=== PATIENT | female | born 1945 | race Caucasian/White ===

== ENCOUNTER 2020-05-22 14:57 | Emergency (ER) | payer OTHER, SELFPAY ==
[2020-05-22 14:59] VITALS: BP 190/67; PULSE 68; RESP 15; TEMP 36.4; O2SAT 98; BMI 24.5
--- NOTE | 2020-05-22 15:08 | VDLE_ITS ---
RIGHT GSV is normal. CFV is compressible, spontaneous, phasic, competent and demonstrates normal augmentation. FV is compressible, spontaneous, phasic, competent and demonstrates normal augmentation. POP V is compressible, spontaneous, phasic, competent and demonstrates normal augmentation. T/P Trunk is compressible. PTV is compressible. RT PerV is compressible. Gastroc V is dilated and noncompressible. Varicose veins below the knee are noncompressible. Procedure This is a venous duplex using B-mode, color flow and spectral Doppler. Exam performed portable in ED. The exam was abbreviated due to the COVID 19 protocol. The exam was diagnostic. A preliminary report was called and/or faxed to Dr. Bazan. Interpretation Summary Acute deep venous thrombosis right gastrocnemius veins Superficial thrombophlebitis infrageniculate right varicose veins Patent and compressible right great saphenous vein COVID-19 protocol Ordering Physician: Shy Bazan Referring Physician: TEODORO Pendleton M.D. Performed By: Jett Whaley RVT
--- NOTE | 2020-05-22 15:09 | ED.VIS.GEN ---
History of Present Illness Chief Complaint: Lower Extremity Injury Detail of Chief Complaint: Right leg pain, concern for DVT Informant: Patient Onset: Days - Greater than 1 week Context: Gradual Onset Current Severity: Mild Maximum Severity: Moderate Narrative: Patient presents secondary to right leg pain and concern for DVT. Patient denies injury to that leg. She does report history of surgery for skin cancer on that leg several years ago where they took out one of the main veins. She has had some problems with swelling to that leg since that time. She reports a problem with blood clots in the past, but states she is never been on blood thinners. She did start taking a baby aspirin daily a week or so ago when this started. She denies chest pain or shortness of breath. Past Medical History - Allergies and Home Meds Allergies/Adverse Reactions: Allergies PAIN MEDS Adverse Reaction (Uncoded 05/22/20 14:57) Rash Primary Care Physician: Lacho Pendleton III, MD [Primary Care Provider] - Lives: With Family Smoking Status: Never smoker Review of Systems General: Denies: Chills, Fever Eyes: Denies: Visual changes - bilaterally ENT: Denies: Bilateral ear pain Cardiovascular: Denies: Chest pain Respiratory: Denies: Dyspnea, Cough Gastrointestinal: Denies: Abdominal pain Musculoskeletal: Reports: Swelling, Extremity Pain Skin: Denies: Rash Hematologic: Denies: Easy bruising, Easy bleeding Allergy: Denies: Uticaria Physical Exam Vital Signs/Narrative: Vital Signs Temp Pulse Resp BP Pulse Ox 05/22/20 14:59 97.5 F L 68 15 190/67 H 98 Inital Vital Signs reviewed: Yes General: Well nourished, Well developed Head: Normocephalic ENT: Moist mucous membranes Neck: Supple Cardiovascular: Regular rate, Regular rhythm Respiratory: No distress, CTA bilaterally Abdomen: Soft, Nontender Extremities: - - Tenderness to palpation what feels like superficial clot in the medial right lower leg. Mild surrounding skin erythema that looks to be more consistent with chronic venous skin changes. Strong distal pulses. No tenderness at the knee or hip. Neurological: Alert, Oriented x3 Psychological: Normal affect Diagnostic/Tx/Re-eval Venous ultrasound was performed. Verbal report from the tech indicates several varicose veins that are clotted superficially as well as a deep clot in the gastroc. - Medical Decision Making Test results discussed with the patient. Because she has a single deep clot below the knee we discussed the options of repeat imaging studies versus anticoagulants. At this time she is reluctant to start blood thinners. I did speak with her PCP, Dr. Lacho Pendleton. He will order repeat ultrasound for her. If patient does not hear from the office tomorrow she is to call them to verify time of her next appointment. ED Disposition - Plan for ED Patient: Disposition: Home or Assisted Living Diagnosis: DVT (deep venous thrombosis) Instructions: ED DVT Referrals: Lacho Pendleton III, MD [Primary Care Provider] - 3-5 Days
[2020-05-22 16:04] VITALS: BP 172/87; PULSE 71; RESP 16; O2SAT 97
== END 2020-05-22 16:11 | disposition home or self-care (01) ==
LOC: ED 16:01
PROVIDERS: Emergency Provider Emergency Medicine; PCP Family Medicine
DX: I82.461 Acute embolism and thrombosis of right calf muscular vein (principal); I83.91 Asymptomatic varicose veins of right lower extremity; Z85.828 Personal history of other malignant neoplasm of skin
CPT/HCPCS: 93971; 99282

== ENCOUNTER 2021-09-09 13:58 | Observation (INO) | payer SELFPAY, OTHER ==
[2021-09-09] VITALS (34 sets, daily range): BP systolic 83–190; BP diastolic 53–127; PULSE 54–90; RESP 12–20; TEMP 35.9–36.7; O2SAT 92–100; BMI 24.4
[2021-09-09 06:50] LABS: Hematocrit 40.7 % (37-47); Hemoglobin 14.2 g/dL (12.0-15.0); Mean Corp Hgb Conc 34.9 g/dL (32-36); Mean Corpuscular Hgb 32.9 pg (27.0-32.0); Mean Corpuscular Volume 94.2 fL (81-99); Mean Platelet Vol. 10.1 fl (6.2-12.0); Platelet Count 260 K/mm3 (150-450); RBC Distribution Width CV 12.6 % (11.6-14.6); RBC Distribution Width SD 43.8 fl (35.1-43.9); Red Blood Count 4.32 M/mm3 (4.2-5.4); White Blood Count 5.4 K/mm3 (4.4-11.0)
[2021-09-09] MEDS: Lactated Ringers 1,000 ML 15 ML IV ×2 (06:52→09:39)
[2021-09-09 07:06] LABS: Anion Gap 6 (5-15); BUN 20 mg/dL (7-18); BUN/Creat Ratio 18.5 RATIO (10-20); Calcium,Total 9.3 mg/dL (8.5-10.1); Chloride 107 mmol/L (98-107); Creatinine, Serum 1.08 mg/dL (0.55-1.02); EST Glomerular Filtration Rate 53 mL/min (>60); Est Glom Filt Rate - Afr Amer 64 mL/min (>60); Estimated Creatinine Clearance 47.76 ml/min; Glucose 112 mg/dL (74-106); Potassium 3.8 mmol/L (3.5-5.1); Sodium Level 139 mmol/L (136-145)
--- NOTE | 2021-09-09 07:32 | EKG12_ITS ---
Test Reason : PRE OP Blood Pressure : / mmHG Vent. Rate : 065 BPM Atrial Rate : 065 BPM P-R Int : 204 ms QRS Dur : 084 ms QT Int : 420 ms P-R-T Axes : 072 037 045 degrees QTc Int : 436 ms Sinus rhythm with Premature atrial complexes Low voltage QRS Borderline ECG When compared with ECG of 03-OCT-2013 12:33, Premature atrial complexes are now Present Confirmed by MARIELENA WINTER, TOBIAS ([id number]), visual effects editor ANTOINE STOVALL ([id number]) on 09/12/2021 1:38:42 PM Referred By: Myrna Ventura Confirmed By:ARON PEGUERO MD
--- NOTE | 2021-09-09 07:33 | OP.PCM_ITS ---
Problems Associated Problem List Diagnoses (1) Female bladder prolapse, acquired: (2) Vaginal enterocele: Report of Operation Date of Procedure: 09/09/21 Pre-Operative Diagnosis: vaginal enterocele Post-Operative Diagnosis: Same Surgery/Procedure Performed:: Repair enterocele, bilateral sacrospinous ligament fixation with dermis, cystoscopy with bilateral ureteral catheterization. Surgeon: Myrna Ventura Type of Anesthesia: General Specimen's removed: None Drains: Bailey catheter Estimated Blood Loss (mL): 25 cc Description of Procedure: The patient is a 75-year-old female with a significant enterocele, secondary to her discomfort difficult to tell the amount of anterior and posterior defect in the office. She presents for definitive surgical intervention. We have discussed a colpocleisis if possible, and if not the safest surgical intervention. Informed consent was obtained. The patient was taken the operating room and placed on the operating room table. Anesthesia monitored the head, neck, airway, IV access and vital signs throughout the case. Once anesthesia was appropriately administered the patient was placed into dorsal lithotomy and Trendelenburg position was prepped and draped in usual sterile fashion. A Bailey catheter was inserted and the bladder was drained. The catheter was left to straight drain. At this time the enterocele sac was easily identified and brought further out into the operative space. The posterior defect was all apical and there is no anterior defect. At this time the decision was made to just repair the enterocele and provide apical support. The enterocele sac was injected submucosally with lidocaine with epinephrine for hydrostatic dissection and hemostatic control. A knife was used to open the vaginal mucosa and sharp and blunt dissection was performed until the enterocele sac was reduced. It was reduced using 3-0 PDS and subsequent pursestring sutures all the way to the apex. At this time the ischial spines were freed from surrounding tissues and the sacrospinous ligaments were identified and dissected. The Capio device was used to pass Ethibond sutures on each side. The sutures were passed through the dermis which was trimmed to fit the space. From here, the Ethibond was taken through the vaginal mucosa at the apex. The patient's left side was brought through the anterior portion of the incision, and on the right posterior to the incision. At this time the excess mucosa from the enterocele sac was excised. The dermis was attached to the apex anteriorly and posteriorly. The incision was then closed in full-thickness fashion with running interlocking 2-0 Vicryl. The Ethibond sutures were tied into position. The enterocele was completely reduced and no prolapse remained. At this time the Bailey catheter was removed and the patient was placed in a flat supine pos ition. A cystoscopy was performed through the urethra under direct visualization revealing no evidence of injury to the urinary bladder. The ureteral orifices were located in the correct anatomic position. A right ureteral jet was easily observed. A whistle-tip catheter was inserted into each ureteral orifice to 20 cm without evidence of obstruction or injury. At this time the cystoscope was removed and the Bailey catheter was replaced. The vagina was packed with estrogen cream and vaginal packing. The patient was awakened and taken to the recovery room in good condition. There were no complications during this procedure. Grafts/Implants Used: Dermis Complications None Admit VTE Documentation VTE Present on Admission: Yes VTE Mechan Device Prophylaxis: SCD's VTE Pharm Prophylaxis ordered?: Yes
[2021-09-09] MEDS: Cefazolin 2 GM in 0.9% Normal Saline 100 ML IV (07:41)
[2021-09-09] MEDS: Lubricating Jelly 60 GM Tube 30 GM (07:49)
[2021-09-09] MEDS: Lidocaine 1%/Epi 1:200 (30ml) 30 ML AMPUL (08:00)
[2021-09-09] MEDS: Estrogens,Conj. 1 Tube 1 DOSE (09:15)
[2021-09-09] MEDS: Enoxaparin 40 MG/0.4 ML Syringe SC (12:03)
[2021-09-09] MEDS: Dextrose 5%-Lactated Ringers 1,000 ML 100 ML IV (12:04)
[2021-09-09] MEDS: 0.9% Normal Saline 1,000 ML 500 ML IV ×2 (15:40→18:16)
--- NOTE | 2021-09-09 15:50 | CT_ITS ---
EXAM: CT ABDOMEN AND PELVIS WITH INTRAVENOUS CONTRAST : 1945 CLINICAL INDICATION: Abdominal distention following surgery TECHNIQUE: Helically acquired images were obtained of the abdomen and pelvis with intravenous contrast. This CT exam was performed using one or more of the following dose reduction techniques: automated exposure control, adjustment of the mA and/or kV according to patient size, and/or use of iterative reconstruction technique. This report was created using Virtual[employer] report generation technology. CONTRAST: IV 100mL Isovue-300 COMPARISON: None. FINDINGS: LOWER THORAX: Unremarkable. Lung bases are clear. No cardiomegaly. No significant pericardial effusion. ABDOMEN: LIVER: Unremarkable. Homogeneous. No focal mass. GALLBLADDER AND BILE DUCTS: Unremarkable. No calcified gallstones. No gallbladder distention or wall edema. No intra- or extrahepatic biliary ductal dilation. PANCREAS: Unremarkable. No focal cystic or solid mass. SPLEEN: Unremarkable. Normal size without focal cystic or solid mass. ADRENALS: Unremarkable. No nodules. KIDNEYS AND URETERS: Unremarkable. Normal renal size and position. No hydronephrosis. STOMACH AND BOWEL: 15.8 x 8.8 x 8.6 cm hematoma noted within the pelvis located posterior to the rectum within the presacral space. Early arterial phase image shows a small focus of contrast extravasation measuring 15 mm in diameter. Subsequent venous phase image demonstrates extravasated contrast to measure 7 cm in maximum diameter indicating significant arterial bleeding. More interstitial hemorrhage extends into the retroperitoneal space lower abdomen. No stomach or bowel distention. No focal inflammatory change. PELVIS: APPENDIX: No evidence of acute appendicitis. BLADDER: Bailey catheter in place within a decompressed anteriorly displaced urinary bladder. Surgical dressing noted along the perineum posterior to the urethra. REPRODUCTIVE: Unremarkable as visualized. No mass. ABDOMEN and PELVIS: INTRAPERITONEAL SPACE: Small amount of ascites noted within the right upper quadrant with density suggestive of transudate. No free air. BONES/JOINTS: Unremarkable. No suspicious lytic or blastic abnormality. SOFT TISSUES: Unremarkable. No discrete abdominal or pelvic wall hernia. VASCULATURE: See above. LYMPH NODES: Unremarkable. No enlarged lymph nodes. CT/Abdomen/Pelvis W IV Cont ONLY IMPRESSION: Large presacral pelvic hematoma displacing the rectum anteriorly with evidence of significant active bleeding. These findings were discussed with at 5 PM September 09, 2021. Individualized dose optimization techniques were used for this CT. at 1702 Reported and signed by: Benny Freire MD Electronically Signed: Benny Freire MD at 17:01 EDT ,
--- NOTE | 2021-09-09 15:58 | PCM.PN.GU ---
Subjective Subjective Called to see patient due to decrease in blood pressure and abdominal bloating with decreased urine output. She was feeling well until she tried to drink some water about 15 minutes ago. Now she is having bloating and feeling like her bladder is full and will not empty. No nausea.Did feel light headed when stood at bedside. When vitals were checked, blood pressure dropped to 83 systolic. She is currently lying in bed. Main complaint is that she feels like her bladder cannot empty. Objective Data Objective Data Vital Signs: Vital Signs Temp Pulse Resp BP Pulse Ox 97.7 F L 64 18 110/68 95 09/09/21 15:23 09/09/21 15:57 09/09/21 15:23 09/09/21 15:57 09/09/21 15:23 Oxygen Flow Rate (L/min) 2 Oxygen Delivery Method Room Air Weight: 75 kg Body Mass Index (BMI) 24.4 Intake & Output: Intake and Output for Last 24 Hours 09/07/21 09/08/21 09/09/21 22:59 23:59 23:59 Intake Total 1146.25 / 1146.25 Output Total 560 / 560 Balance 586.25 / 586.25 Lab / Micro Data Result Diagrams: 09/09/21 06:42 09/09/21 06:42 Labs: Laboratory Results - last 24 hr 09/09/21 06:42: WBC 5.4, RBC 4.32, Hgb 14.2, Hct 40.7, MCV 94.2, MCH 32.9 H, MCHC 34.9, RDW Std Deviation 43.8, RDW Coeff of Nuvia 12.6, Plt Count 260, MPV 10.1 09/09/21 06:42: Sodium 139, Potassium 3.8, Chloride 107, Carbon Dioxide 26.0, Anion Gap 6, BUN 20 H, Creatinine 1.08 H, Estim Creat Clear Calc 47.76, Est GFR (MDRD) Af Amer 64, Est GFR (MDRD) Non-Af 53 L, BUN/Creatinine Ratio 18.5, Glucose 112 H, Calcium 9.3 Micro: Microbiology 09/09/21 06:28 Interface Orders SARS-CoV-2 Antigen (Rapid) - Final Physical Exam Const alert, oriented x3 and no apparent distress Constitutional Narrative: appears pale General Appearance: cooperative Cardio regular rate GI soft to palpation Inspection: abdominal distention Palpation: tender Narrative: escobar irrigated and did not drain well. It was removed and replaced with new catheter that drained about 40cc of pale yellow to clear, likely irrigant. Assessment & Plan Assessment/Plan (1) Vaginal enterocele: PLAN: bolus CBC and BMP stat stat CT abdomen and pelvis NPO
--- NOTE | 2021-09-09 16:34 | NURSING ---
pt back from ct via bed at this time. abd remnains distended. pt c/o abd pain. denies wanting ms for pain.
--- NOTE | 2021-09-09 16:35 | NURSING ---
1510 this rn into rm. pt c/o bladder distension. bladder scanned for 61 cc and again for 35 cc. pt painful, abd distended, 1515 jesus rn into rm
--- NOTE | 2021-09-09 16:37 | NURSING ---
1515 attempted to sit pt on side of bed to reposition to get escobar to drain. pt felt like was going to pass out. layed back down in bed. escobar emptied for 150cc. dr lees paged. small amt of bloody drng noted from vagina from surgery. [address] lees at bedside. flushed escobar with no results. changed escobar. no results. 1550 ct abd ordered by dr Hemphill pt to ct via bed. abd remains distended. pt a&ox3.
--- NOTE | 2021-09-09 16:42 | NURSING ---
dr lees paged
[2021-09-09 17:28] LABS: Hematocrit 30.2 % (37-47); Hemoglobin 10.3 g/dL (12.0-15.0); Mean Corp Hgb Conc 34.1 g/dL (32-36); Mean Corpuscular Hgb 32.9 pg (27.0-32.0); Mean Corpuscular Volume 96.5 fL (81-99); Mean Platelet Vol. 10.4 fl (6.2-12.0); Platelet Count 238 K/mm3 (150-450); RBC Distribution Width SD 45.7 fl (35.1-43.9); Red Blood Count 3.13 M/mm3 (4.2-5.4); White Blood Count 14.6 K/mm3 (4.4-11.0)
--- NOTE | 2021-09-09 17:30 | NURSING ---
1700dr nabeel fowler to transfer to icu. report called to [facility]. 1705 lab on ms3 to draw type ans screen. bp 108/63, hr 63, po 100% on 3l. 1710 pt to icu 4. to icu waiting room. aware pt will be trransferred out of icu to [facility]. pt weak, pale, a&ox3.
[2021-09-09 17:41] LABS: Anion Gap 8 (5-15); BUN 20 mg/dL (7-18); BUN/Creat Ratio 18.7 RATIO (10-20); Chloride 108 mmol/L (98-107); Creatinine, Serum 1.07 mg/dL (0.55-1.02); EST Glomerular Filtration Rate 53 mL/min (>60); Est Glom Filt Rate - Afr Amer 64 mL/min (>60); Estimated Creatinine Clearance 48.21 ml/min; Glucose 176 mg/dL (74-106); Potassium 4.2 mmol/L (3.5-5.1); Sodium Level 139 mmol/L (136-145)
--- NOTE | 2021-09-09 18:02 | PCM.PN.GU ---
Subjective Subjective Patient is comfortable, complaining about bladder pressure and abdominal bloating. She is nervous. No nausea. Complaining of dry mouth. Objective Data Objective Data Vital Signs: Vital Signs Temp Pulse Resp BP Pulse Ox 97.1 F L 66 18 110/71 100 09/09/21 16:52 09/09/21 16:52 09/09/21 16:52 09/09/21 16:52 09/09/21 16:52 Oxygen Flow Rate (L/min) 3 Oxygen Delivery Method Nasal Cannula Weight: 75 kg Body Mass Index (BMI) 24.4 Intake & Output: Intake and Output for Last 24 Hours 09/07/21 09/08/21 09/09/21 22:59 23:59 23:59 Intake Total 1612.92 / 1612.92 Output Total 560 / 560 Balance 1052.92 / 1052.92 Lab / Micro Data Result Diagrams: 09/09/21 17:14 09/09/21 17:14 Labs: Laboratory Results - last 24 hr 09/09/21 06:42: WBC 5.4, RBC 4.32, Hgb 14.2, Hct 40.7, MCV 94.2, MCH 32.9 H, MCHC 34.9, RDW Std Deviation 43.8, RDW Coeff of Nuvia 12.6, Plt Count 260, MPV 10.1 09/09/21 06:42: Sodium 139, Potassium 3.8, Chloride 107, Carbon Dioxide 26.0, Anion Gap 6, BUN 20 H, Creatinine 1.08 H, Estim Creat Clear Calc 47.76, Est GFR (MDRD) Af Amer 64, Est GFR (MDRD) Non-Af 53 L, BUN/Creatinine Ratio 18.5, Glucose 112 H, Calcium 9.3 09/09/21 17:14: WBC 14.6 H, RBC 3.13 L, Hgb 10.3 L, Hct 30.2 L, MCV 96.5, MCH 32.9 H, MCHC 34.1, RDW Std Deviation 45.7 H, RDW Coeff of Nuvia 13.0, Plt Count 238, MPV 10.4 09/09/21 17:14: Sodium 139, Potassium 4.2, Chloride 108 H, Carbon Dioxide 23.0, Anion Gap 8, BUN 20 H, Creatinine 1.07 H, Estim Creat Clear Calc 48.21, Est GFR (MDRD) Af Amer 64, Est GFR (MDRD) Non-Af 53 L, BUN/Creatinine Ratio 18.7, Glucose 176 H, Calcium 8.0 L 09/09/21 17:14: Crossmatch See Detail Micro: Microbiology 09/09/21 06:28 Interface Orders SARS-CoV-2 Antigen (Rapid) - Final Radiography Diagnostic Testing: Radiology Impression Abdomen/Pelvis CT 09/09/21 15:50 IMPRESSION: Large presacral pelvic hematoma displacing the rectum anteriorly with evidence of significant active bleeding. These findings were discussed with at 5 PM September 09, 2021. Individualized dose optimization techniques were used for this CT. at 1702 Reported and signed by: Benny Freire MD Electronically Signed: Benny Freire MD at 17:01 EDT , Physical Exam Narrative She is alert and oriented x3. She is appropriate. Resp normal respiratory effort, normal air movement, no retractions and no use of accessory muscles Cardio regular rate and regular rhythm GI GI Narrative: Abdomen remains soft and distended. It is slightly increased in distention from when I saw her approximately 2-1/2 hours ago. Narrative: Bailey catheter draining clear yellow urine. Extremity Extremity Narrative: Moves all extremities. SCDs in place. Skin no petechiae and no mottling General Skin Exam: no breakdown Neuro oriented x3, CN's II-XII intact bilaterally and moves all extremities Assessment & Plan Assessment/Plan (1) Pelvic hematoma in female: (2) Vaginal enterocele: PLAN: Patient will be transferred to [facility]. She will be accepted by Dr. Solo Sanchez. I have spoken with interventional radiology and am awaiting a call from the it quality analyst at [facility]. The plan will be for CTA upon arrival with further evaluation and procedural intervention per radiology. She is currently in the ICU and we will check serial H&H's and continue supportive care. A second intravenous access was obtained. 4 units is typed and screened and on hold. I have spoken with family few times throughout the afternoon and they are aware of the situation. I have answered their questions to the best of my ability.
--- NOTE | 2021-09-09 18:15 | NURSING ---
call received from [facility] transport line. States transfer is on hold until [facility]'s student activities director speaks with Dr. Ventura. Transfer line will call with updated bed number once patient has been accepted by student activities director
[2021-09-09 18:40] LABS: International Normalized Ratio 1.1
[2021-09-09 18:41] LABS: Partial Thromboplast Time 24.7 Seconds (24.1-36.2)
[2021-09-09 19:17] LABS: Hematocrit 29.3 % (37-47); Hemoglobin 9.5 g/dL (12.0-15.0)
[2021-09-09] MEDS: 0.9% Saline Lock 10 ML Syringe IV (19:19)
[2021-09-09] MEDS: Ondansetron 4 MG/2 ML Vial IV (19:19)
--- NOTE | 2021-09-09 19:58 | CPS ---
left O2 on pt due to RN request
== END 2021-09-09 20:30 | disposition short-term general hospital (02) ==
LOC: MS3 14:37 → ICU 20:49
PROVIDERS: Admitting Provider Urology; PCP Internal Medicine; Referring Provider Urology; Visit Provider Urology
PROC: (CPT 57260; principal; 2021-09-09 07:15)
DX: N32.89 Other specified disorders of bladder (principal); D68.9 Coagulation defect, unspecified; R14.0 Abdominal distension (gaseous); H40.9 Unspecified glaucoma; R35.1 Nocturia; N32.81 Overactive bladder; N95.2 Postmenopausal atrophic vaginitis; Z86.718 Personal history of other venous thrombosis and embolism
CPT/HCPCS: 57268; 00942; 36415; 74177; 80048; 85014; 85018; 85027; 85610; 85730; 86850; 86900; 86901; 86920; 86922; 87426; 93005; 94762; 96361; 96365; 96372; 96375; 99218; 99251; J7030; J7120; Q9967; A4216; C1758; G0378; G0463; J2405

== ENCOUNTER 2021-09-16 10:01 | Outpatient (CLI) | payer OTHER, SELFPAY ==
[2021-09-16 10:53] LABS: Hematocrit 26.4 % (37-47); Hemoglobin 8.6 g/dL (12.0-15.0); Mean Corp Hgb Conc 32.6 g/dL (32-36); Mean Corpuscular Volume 98.1 fL (81-99); Mean Platelet Vol. 10.4 fl (6.2-12.0); Platelet Count 291 K/mm3 (150-450); RBC Distribution Width CV 16.2 % (11.6-14.6); RBC Distribution Width SD 51.8 fl (35.1-43.9); Red Blood Count 2.69 M/mm3 (4.2-5.4); White Blood Count 9.8 K/mm3 (4.4-11.0)
[2021-09-16 11:08] LABS: Anion Gap 6 (5-15); BUN 17 mg/dL (7-18); BUN/Creat Ratio 20.7 RATIO (10-20); Calcium,Total 9.1 mg/dL (8.5-10.1); Chloride 105 mmol/L (98-107); Creatinine, Serum 0.82 mg/dL (0.55-1.02); EST Glomerular Filtration Rate 72 mL/min (>60); Est Glom Filt Rate - Afr Amer 87 mL/min (>60); Glucose 103 mg/dL (74-106); Sodium Level 137 mmol/L (136-145)
== END 2021-09-16 23:59 | disposition home or self-care (01) ==
PROVIDERS: PCP Internal Medicine; Referring Provider Urology; Visit Provider Urology
DX: D50.0 Iron deficiency anemia secondary to blood loss (chronic) (principal)
CPT/HCPCS: 36415; 80048; 85027

== ENCOUNTER 2021-09-28 08:34 | Inpatient (IN) | payer OTHER, SELFPAY ==
[2021-09-28] VITALS (9 sets, daily range): BP systolic 116–138; BP diastolic 53–84; PULSE 62–83; RESP 16–20; TEMP 36.4–39.3; O2SAT 90–98; BMI 24.3; BMI 25.5
--- NOTE | 2021-09-28 08:47 | CT_ITS ---
STUDY: CT ABDOMEN AND PELVIS WITH CONTRAST REASON FOR EXAM: Female, 76 years old. Abdominal pain -- IV PO Contrast -- status post hernia surgery 09/09/21 with post op hematoma, trouble urinating, fever, lower abdomen and back pain, DELAYED images included. RADIATION DOSAGE (If Supplied By Facility): CTDIvol = ( 14.91 ) mGy, DLP = ( 1868.78 ) mGycm TECHNIQUE: Transaxial images were obtained from the dome of the diaphragm to the symphysis pubis with oral contrast. Oral and amp; IV Gastrografin and amp; 75mL Isovue-300 was administered. Sagittal and coronal images were reconstructed. Individualized dose optimization techniques were used for this CT. COMPARISON: 09/09/2021 FINDINGS: The visualized lung bases demonstrate atelectatic changes in both lower lobes. Normal heart size. Calcifications in the region of the mitral annulus. Pancreas glands Normal gallbladder and extrahepatic biliary system. Normal spleen. Normal pancreas. Normal bilateral adrenal glands. Moderate right hydronephrosis and hydroureter. Normal left kidney. Significant motion artifacts limiting the evaluation of the bowel loops. The stomach is not well-distended. Normal small intestine. Fecal retention. Oral contrast reached the colon. There is non-visualization of the appendix. There is diffuse atherosclerotic calcification of the abdominal aorta with elongation and tortuosity, but without a demonstrated aneurysm. Normal inferior vena cava. No evidence of retroperitoneal adenopathy. Persistent large heterogeneous pelvic mass in the presacral space consistent with hematoma measuring about 15 cm in maximum diameter displacing the rectum and compressing the urinary bladder consistent with large hematoma. The previously noted active bleed is not definitely identified at this time. Bailey catheter is seen however the balloon may be in bladder base or within the urethra. There is absence of the uterus consistent with a prior hysterectomy. There is a right-sided inguinal hernia containing adipose tissue. Stable osseous structures. CT/Abdomen/Pelvis WITH Contrast IMPRESSION: 1. Persistent large presacral pelvic hematoma displacing the rectum and the bladder unchanged in size since previous examination. The previously noted active bleed is not seen at this time. 2. Mild to moderate right hydronephrosis and hydroureter extending to the pelvic lesion possibly due to compression views are markedly pelvic mass. 3. Bailey catheter with the balloon may be within the urethra. 4. No new focal acute inflammatory process. Electronically Signed: Rick Rivas MD at 11:56 EDT ,
--- NOTE | 2021-09-28 08:48 | ED.VIS.GI ---
HPI HPI - GI History of Present Illness Chief Complaint: Abd Pain Detail of Chief Complaint: Fever, abdomen pain, back pain Informant: patient Abdominal Pain/Flank Pain Current Severity: Moderate Narrative Narrative: Patient presents to the emergency department complaint of abdominal pain and low back pain that started yesterday. Patient states that she had enterocele surgery with urologist on September 09. Patient secondarily developed a hematoma that required 1 unit transfusion. Patient had Bailey catheter placed at time of surgery and then had the catheter taken out 5 days ago however she was unable to void and yesterday had a another catheter placed. Patient also was started on Levaquin for suspected urinary tract infection. Last night patient apparently had fever to 105. Patient denies nausea or vomiting. She did note small amount of blood in the urine. Patient not on any blood thinners. Patient's urologist called me and asked that we obtain lab work and a CT scan to evaluate further. [facility] Medical History (Updated 09/28/21 @ 12:[address] Maile Bowles, DO) Back pain Cancer Cataracts, bilateral DVT (deep venous thrombosis) Easy bruising Glaucoma History of blood clots History of colitis History of edema History of irregular heartbeat History of pneumonia History of stress test Leg cramps Melanoma Mitral valve problem Pelvic hematoma in female Post-menopausal Shortness of breath on exertion Skin cancer Vaginal enterocele Wears glasses Home Medications garlic 1 mg PO DAILY 09/30/13 [History Last Taken Unknown] multivitamin with folic acid [Thera] 1 tab PO DAILY 09/30/13 [History Last Taken Unknown] omega-3 fatty acids-fish oil 1 ea PO DAILY 09/30/13 [History Last Taken Unknown] digestive enzymes 1 cap PO DAILY 05/06/21 [History Last Taken Unknown] hawthorn 500 mg PO DAILY 09/03/21 [History Last Taken Unknown] Allergy/AdvReac Type Severity Reaction Status Date / Time azithromycin Allergy Unknown unknown Verified 09/28/21 08:35 NSAIDS (Non-Steroidal Allergy Unknown rash Verified 09/28/21 08:35 Anti-Inflamma PAIN MEDS AdvReac Rash Uncoded 09/28/21 08:35 Family History (Updated 05/03/21 @ 16:42 by Valeria Saldana) Other Melanoma Surgical History (Updated 09/03/21 @ 11:35 by Janelle Atkinson) History of appendectomy History of hernia repair History of hysterectomy History of knee surgery History of tonsillectomy History of tubal ligation Hx of melanoma excision Social History (Updated 05/03/21 @ 16:42 by Valeria Saldana) Smoking Status: Never smoker alcohol intake: never substance use type: does not use ROS ROS ED Constitutional Constitutional ED: Reports systems reviewed and no addt'l complaints, except as documented and fever(s); Denies body ache(s), change in weight or chills Eyes Eyes: Denies acute decrease in peripheral vision, change in vision, double vision or loss of vision ENT ENT ED: Reports none; Denies ear pain, lip swelling, loss taste/smell, neck pain, otalgia or sore throat Cardiovascular Cardiovascular: Reports none; Denies abdominal pain, chest pain with activity, leg edema, lightheadedness, palpitations, rapid heart rate or syncope Respiratory/Chest Respiratory/Chest: Reports none; Denies change in mental status, dry cough, dyspnea, hemoptysis, shortness of breath at rest or shortness of breath with exertion Gastrointestinal Gastrointestinal: Reports none and abdominal pain; Denies change in stool character, diarrhea, hematemesis, hematochezia, melena, rectal bleeding or vomiting Genitourinary Genitourinary ED: Reports none; Denies abdominal discomfort, anuria, dysuria, genital pain or polyuria Musculoskeletal Musculoskeletal: Reports none and back pain; Denies arthralgias, difficulty walking, extremity pain, muscle weakness or myalgias Integumentary Reports none; Denies abscess or rash Neurologic Neurologic: Reports none; Denies abnormal gait, confusion, focal weakness, frequent falls, headache(s), loss of vision, numbness, paresthesias, radicular pain, vertigo or weakness Psychiatric Psychiatric: Reports systems reviewed and no addt'l complaints, except as documented and none; Denies behavioral changes, confusion, difficulty concentrating, hallucinations, suicidal ideation, tactile hallucinations or visual hallucinations Endocrine Endocrinology: Denies none, cold intolerance, excessive sweating, fatigue or heat intolerance Hematologic/Lymphatic Hematologic/Lymphatic: Reports none; Denies anemia, easy bleeding or easy bruising Allergic/Immunologic Allergic/Immunologic ED: Denies as per HPI, none, lip swelling, mouth swelling, throat swelling, tongue swelling or hives EXAM Physical Exam Const Vital Signs: 09/28/21 08:36 09/28/21 09:01 09/28/21 10:59 Temperature 98.6 F 98.6 F 97.6 F L Temperature Source Oral Oral Oral Pulse Rate 80 80 82 Respiratory Rate 16 16 16 Blood Pressure 123/53 H 123/53 H 129/84 H Blood Pressure Mean 76 76 99 Pulse Ox 92 92 98 Oxygen Delivery Method Room Air Room Air Room Air 09/28/21 12:20 Temperature 97.5 F L Temperature Source Oral Pulse Rate 62 Respiratory Rate 17 Blood Pressure 129/74 H Blood Pressure Mean 92 Pulse Ox 96 Oxygen Delivery Method Room Air Positive well nourished and well developed General Appearance ED: well developed and NAD HEENT Reports TM's clear and moist mucous membranes normocephalic and atraumatic; Negative for trauma or tenderness Tympanic Membrane ED: Yes TM's clear Eyes PERRL and EOMs intact bilaterally General Eye ED: Negative for pale conjunctiva or scleral icterus Neck no lymphadenopathy, supple and no JVD General: Negative for tenderness Chest Wall inspection of chest normal and palpation of chest normal Chest: Negative for tenderness Resp normal respiratory effort and clear to auscultation bilaterally Effort and Inspection: Negative for respiratory distress or pain with movement Auscultation: Negative for rhonchi, wheezes or diminished lung sounds Cardio regular rate, regular rhythm, S1 normal heart sound, S2 normal heart sound and no murmurs Peripheral Pulses: pulses 2+ throughout GI normal to inspection, nondistended, normoactive bowel sounds, soft to palpation, non-tender, non-distended and no masses GI Narrative: Mild diffuse tenderness over lower abdomen. There is no rebound, rigidity, or peritoneal signs. No masses palpated. Back/Spine no CVA tenderness and no thoracic nor lumbar tenderness Extremity normal to inspection General Extremety ED: Negative for edema General Extremity: Negative for edema Neuro oriented x3, CN's II-XII intact bilaterally, no sensory deficits noted and gait normal Sensorium / Orientation: awake, alert, oriented to person, oriented to place and oriented to time Motor Exam: strength 5/5 throughout and strength abnormal Psych mental status grossly normal Skin no rashes or lesions noted and no wounds MDM MDM MDM Narrative Medical decision making narrative: IV line established on arrival. Patient was treated with vancomycin and Zosyn on arrival. Blood cultures ordered. Patient was given normal saline fluid. Patient does have a leukocytosis. Her lactate also was elevated 2.5. CT scan of the abdomen pelvis with IV and p.o. contrast ordered showed persistent large presacral pelvic hematoma displacing the rectum and bladder unchanged in size from previous exam. The previously noted active bleeding is not seen at this time. Patient also had mild to moderate right hydronephrosis and hydroureter extending to the pelvic lesion possibly due to compression. Bailey catheter with balloon may be within the urethra. I asked the nurses to a takedown the Bailey balloon and inserted further into bladder and then reinflate the balloon. I discussed patient with her urologist Dr. Ventura who did not feel there was anything surgical or that patient required any type of immediate intervention. She recommended admission for IV antibiotics and fluids to hospitalist and she can consult on the patient tomorrow when she is back in town. I discussed case with hospitalist will evaluate patient for admission Lab Data Attestation: I reviewed the patient's lab results. Labs: Laboratory Results - last 24 hr 09/28/21 09/28/21 09/28/21 08:51 08:51 08:51 WBC 20.1 H RBC 3.20 L Hgb 10.2 L Hct 30.5 L MCV 95.3 MCH 31.9 MCHC 33.4 RDW Std Deviation 54.1 H RDW Coeff of Nuvia 15.5 H Plt Count 339 MPV 9.7 Immature Gran % (Auto) 0.900 Neut % (Auto) 87.8 H Lymph % (Auto) 5.5 L [place] % (Auto) 5.7 Eos % (Auto) 0.0 Baso % (Auto) 0.1 Absolute Neuts (auto) 17.6 H Absolute Lymphs (auto) 1.10 Nucleated RBC % 0 Sodium 127 L Potassium 3.8 Chloride 91 L Carbon Dioxide 28.0 Anion Gap 8 BUN 15 Creatinine 1.33 H Estim Creat Clear Calc 38.19 Est GFR (MDRD) Af Amer 50 L Est GFR (MDRD) Non-Af 41 L BUN/Creatinine Ratio 11.3 Glucose 125 H Lactic Acid 2.5 H* Calcium 8.5 Total Bilirubin 1.70 H AST 27 ALT 20 Alkaline Phosphatase 104 Total Protein 7.1 Albumin 3.2 Globulin 3.9 Albumin/Globulin Ratio 0.8 L Urine Color Urine Clarity Urine pH Ur Specific [place] Urine Protein Urine Glucose (UA) Urine Ketones Urine Occult Blood Urine Nitrite Urine Bilirubin Urine Urobilinogen Ur Leukocyte Esterase Urine RBC Urine WBC Ur Squamous Epith Cells Urine Bacteria Urine Mucus 09/28/21 10:23 WBC RBC Hgb Hct MCV MCH MCHC RDW Std Deviation RDW Coeff of Nuvia Plt Count MPV Immature Gran % (Auto) Neut % (Auto) Lymph % (Auto) [place] % (Auto) Eos % (Auto) Baso % (Auto) Absolute Neuts (auto) Absolute Lymphs (auto) Nucleated RBC % Sodium Potassium Chloride Carbon Dioxide Anion Gap BUN Creatinine Estim Creat Clear Calc Est GFR (MDRD) Af Amer Est GFR (MDRD) Non-Af BUN/Creatinine Ratio Glucose Lactic Acid Calcium Total Bilirubin AST ALT Alkaline Phosphatase Total Protein Albumin Globulin Albumin/Globulin Ratio Urine Color Yellow Urine Clarity Clear Urine pH 7.0 Ur Specific [place] 1.010 Urine Protein 100 H Urine Glucose (UA) Normal Urine Ketones Negative Urine Occult Blood 150 H Urine Nitrite Negative Urine Bilirubin Negative Urine Urobilinogen Normal Ur Leukocyte Esterase 500 H Urine RBC 0 SEEN Urine WBC 10-25 SEEN Ur Squamous Epith Cells 0 SEEN Urine Bacteria 0 SEEN Urine Mucus 0 SEEN Radiography Diagnostic Testing: Clinical Impression(s) from Imaging Studies Abdomen/Pelvis CT 09/28/21 08:47 IMPRESSION: 1. Persistent large presacral pelvic hematoma displacing the rectum and the bladder unchanged in size since previous examination. The previously noted active bleed is not seen at this time. 2. Mild to moderate right hydronephrosis and hydroureter extending to the pelvic lesion possibly due to compression views are markedly pelvic mass. 3. Bailey catheter with the balloon may be within the urethra. 4. No new focal acute inflammatory process. Electronically Signed: Rick Rivas MD at 11:56 EDT , Discharge Plan Triage Chief Complaint: Abd Pain ED Provider: Maile Bowles Dx/Rx/DC Orders Clinical Impression: Acute UTI, Hydronephrosis, Acidosis, lactic Prescriptions: No Action digestive enzymes Capsule 1 cap PO DAILY RF: 0 garlic 1 MG capsule 1 mg PO DAILY RF: 0 omega-3 fatty acids-fish oil 1 EACH capsule 1 ea PO DAILY RF: 0 multivitamin with folic acid [Thera] 1 TABLET tablet 1 tab PO DAILY RF: 0 hawthorn 500 mg Capsule 500 mg PO DAILY RF: 0 Primary Care Provider: Siobhan Powell Referrals: Siobhan Powell MD [Primary Care Provider] - Disposition Disposition: Acute [facility]
[2021-09-28 09:05] LABS: Absolute Neutrophil Count 17.6 X10^3/uL (2.0-7.7); Basophil# 0.02 X10^3/uL; Basophil% 0.1 % (0-1); Eosinophil# 0.01 X10^3/uL; Hematocrit 30.5 % (37-47); Hemoglobin 10.2 g/dL (12.0-15.0); Lymphocyte % 5.5 % (19-41); Mean Corp Hgb Conc 33.4 g/dL (32-36); Mean Corpuscular Hgb 31.9 pg (27.0-32.0); Mean Corpuscular Volume 95.3 fL (81-99); Mean Platelet Vol. 9.7 fl (6.2-12.0); Monocyte# 1.14 X10^3/uL; Monocyte% 5.7 % (0-10); NRBC Flagged by Analyzer 0 % (0-5); Neutrophil % 87.8 % (47-70); Platelet Count 339 K/mm3 (150-450); RBC Distribution Width CV 15.5 % (11.6-14.6); RBC Distribution Width SD 54.1 fl (35.1-43.9); White Blood Count 20.1 K/mm3 (4.4-11.0)
[2021-09-28] MEDS: 0.9% Normal Saline 1,000 ML 125 ML IV ×3 (09:07→23:20)
[2021-09-28 09:14] LABS: BUN 15 mg/dL (7-18); BUN/Creat Ratio 11.3 RATIO (10-20); Creatinine, Serum 1.33 mg/dL (0.55-1.02); EST Glomerular Filtration Rate 41 mL/min (>60); Est Glom Filt Rate - Afr Amer 50 mL/min (>60); Estimated Creatinine Clearance 38.19 ml/min; Glucose 125 mg/dL (74-106)
[2021-09-28 09:15] LABS: ALB/GLOB Ratio 0.8 RATIO (0.9-2.4); AST(SGOT) 27 U/L (15-37); Alanine Aminotransfer ALT/SGPT 20 U/L (13-56); Albumin, Serum 3.2 g/dL (3.2-5.0); Alkaline Phosphatase 104 U/L (45-117); Anion Gap 8 (5-15); Calcium,Total 8.5 mg/dL (8.5-10.1); Chloride 91 mmol/L (98-107); Globulin 3.9 g/dL (2.2-4.2); Potassium 3.8 mmol/L (3.5-5.1); Protein, Total 7.1 g/dL (6.4-8.2); Sodium Level 127 mmol/L (136-145)
[2021-09-28 09:40] LABS: Lactic Acid 2.5 mmol/L (0.4-1.9)
[2021-09-28 10:31] LABS: Bacteria 0 SEEN /hpf (None Seen); Mucous, Urine 0 SEEN /hpf (<or=2+); Red Blood Cells-Urine 0 SEEN /hpf (0-5); Squamous Epithelial Cells - UA 0 SEEN /hpf (5-10)
[2021-09-28 10:32] LABS: Color, Urine Yellow (Yellow); Glucose, Dipstick Normal (Normal); Ketone-Dipstick Negative (Negative); Leukocyte Esterase-Dipstick 500 /ul (Negative); Nitrite-Dipstick Negative (Negative); Occult Blood-Urine 150 /ul (Negative); Protein-Dipstick 100 mg/dl (Negative); Urine Bilirubin Dipstick Negative (Negative); Urine Clarity Clear (Clear); Urine Urobilinogen Normal (Normal)
[2021-09-28 10:38] LABS: White Blood Cells 10-25 SEEN /hpf (0-5)
[2021-09-28] MEDS: Vancomycin IV 1,000 MG/200 ML BAG 200 MG IV (11:01)
--- NOTE | 2021-09-28 12:21 | ED.RN ---
DEFLATED GORE BALLOON, INSERTED THE CATHETER FURTHER INTO THE BLADDER AND REINFLATED WITH 10ML NS.
--- NOTE | 2021-09-28 12:43 | PCM.HP.STD ---
[facility] - General General Date of Admission: 09/28/21 Date of Service: 09/28/21 Chief Complaint: Fever, chills, feeling unwell, 1 day HPI Narrative YING NARANJO, is a 76 F who presents with the above. Patient has had a recent long and complicated clinical course after her vaginal enterocele repair. Patient developed a pelvic hematoma and had to be transferred emergently to [facility]. She stated that she was discharged from [facility] on 09/12/21 after conservative management with serial CT scans. She followed up with urology in the outpatient on 09/16/21. An attempt to remove her Bailey catheter was unsuccessful. A new Bailey catheter was placed. This was removed on 09/23/21 at home and they had followed up with urology. Patient was seen on 09/27/2021 and diagnosed with acute UTI and started on antibiotics. Overnight she had fever and chills. Her fever was as high as 105F. She denied any chest discomfort or dizziness or palpitations. In the ED, her blood pressure was 123/53, heart rate 80, respiratory rate 16, temperature 98.6 F, saturation was 92% on room air. Her WBC count was 20.1, hemoglobin 10.2, platelet count 339, sodium was 127, potassium 3.8, chloride 91, BUN 15, creatinine 1.33, lactic acid was 2.0, total bilirubin 1.7 otherwise LFTs unremarkable. UA was clear, WBC 10-25, 0 bacteria, leukocyte esterase 500, nitrite negative, occult blood 150. CT scan of the abdomen and pelvis showed persistent large presacral pelvic hematoma displacing the rectum and the bladder. This appears unchanged. Mild to moderate right hydronephrosis and hydroureter extending to the pelvic lesion secondary to compression. [facility] Medical History Back pain Cancer Cataracts, bilateral DVT (deep venous thrombosis) Easy bruising Glaucoma History of blood clots History of colitis History of edema History of irregular heartbeat History of pneumonia History of stress test Leg cramps Melanoma Mitral valve problem Pelvic hematoma in female Post-menopausal Shortness of breath on exertion Skin cancer Vaginal enterocele Wears glasses Home Medications garlic 1 mg PO DAILY 09/30/13 [History Last Taken Unknown] multivitamin with folic acid [Thera] 1 tab PO DAILY 09/30/13 [History Last Taken Unknown] omega-3 fatty acids-fish oil 1 ea PO DAILY 09/30/13 [History Last Taken Unknown] digestive enzymes 1 cap PO DAILY 05/06/21 [History Last Taken Unknown] hawthorn 500 mg PO DAILY 09/03/21 [History Last Taken Unknown] Allergy/AdvReac Type Severity Reaction Status Date / Time azithromycin Allergy Unknown unknown Verified 09/28/21 08:35 NSAIDS (Non-Steroidal Allergy Unknown rash Verified 09/28/21 08:35 Anti-Inflamma PAIN MEDS AdvReac Rash Uncoded 09/28/21 08:35 Family History Other Melanoma Surgical History History of appendectomy History of hernia repair History of hysterectomy History of knee surgery History of tonsillectomy History of tubal ligation Hx of melanoma excision Social History Smoking Status: Never smoker alcohol intake: never substance use type: does not use ROS ROS Narrative Constitutional: Reports: Malaise, Weakness, Fatigue, fever, chills. Denies: Anorexia, Night Sweats, Weight Change Eyes: Denies: Blurred vision, Cataracts, Conjunctivae Inflammation, Pain, Redness, Vision Change HEENT: Denies: Difficulty Hearing, Difficulty Swallowing, Head Aches, Hearing Changes, Sinus Congestion, Sinus Drainage Cardiovascular: Denies: Chest Pain, Orthopnea, Palpitations Respiratory: Denies: Cough, Shortness of breath at rest, Sputum production Gastrointestinal: Denies: Abdominal Pain, Nausea, Vomiting Genitourinary: Denies: Dysuria Musculoskeletal: Denies: Joint Pain, Joint stiffness, Joint swelling, Joint Tenderness Skin: Denies: Rash, Wounds Neurological: Denies: Numbness, Tingling, Focal weakness Vital Signs Vital Signs Vital Signs: 09/28/21 08:36 09/28/21 09:01 09/28/21 10:59 Temperature 98.6 F 98.6 F 97.6 F L Temperature Source Oral Oral Oral Pulse Rate 80 80 82 Respiratory Rate 16 16 16 Blood Pressure 123/53 H 123/53 H 129/84 H Blood Pressure Mean 76 76 99 Pulse Ox 92 92 98 Oxygen Delivery Method Room Air Room Air Room Air 09/28/21 12:20 Temperature 97.5 F L Temperature Source Oral Pulse Rate 62 Respiratory Rate 17 Blood Pressure 129/74 H Blood Pressure Mean 92 Pulse Ox 96 Oxygen Delivery Method Room Air Weight Weight: 74.843 kg Body Mass Index (BMI) 24.3 Physical Exam Narrative Physical exam: General: Alert, Oriented x3, Cooperative, No apparent distress, Well developed HEENT: Atraumatic Oral: Moist Mucosa Neck: Supple Lungs: Clear to auscultation Cardiovascular: HS I+II, regular, no murmurs Abdomen: Distended, slightly tender to palpation, bowel Sounds Present, Soft, Extremities: No edema Results Lab / Micro Data Result Diagrams: 09/28/21 08:51 09/28/21 08:51 Labs: Laboratory Results - last 24 hr 09/28/21 08:51: WBC 20.1 H, RBC 3.20 L, Hgb 10.2 L, Hct 30.5 L, MCV 95.3, MCH 31.9, MCHC 33.4, RDW Std Deviation 54.1 H, RDW Coeff of Nuvia 15.5 H, Plt Count 339, MPV 9.7, Immature Gran % (Auto) 0.900, Neut % (Auto) 87.8 H, Lymph % (Auto) 5.5 L, [place] % (Auto) 5.7, Eos % (Auto) 0.0, Baso % (Auto) 0.1, Absolute Neuts (auto) 17.6 H, Absolute Lymphs (auto) 1.10, Nucleated RBC % 0 09/28/21 08:51: Sodium 127 L, Potassium 3.8, Chloride 91 L, Carbon Dioxide 28.0, Anion Gap 8, BUN 15, Creatinine 1.33 H, Estim Creat Clear Calc 38.19, Est GFR (MDRD) Af Amer 50 L, Est GFR (MDRD) Non-Af 41 L, BUN/Creatinine Ratio 11.3, Glucose 125 H, Calcium 8.5, Total Bilirubin 1.70 H, AST 27, ALT 20, Alkaline Phosphatase 104, Total Protein 7.1, Albumin 3.2, Globulin 3.9, Albumin/Globulin Ratio 0.8 L 09/28/21 08:51: Lactic Acid 2.5 H* 09/28/21 10:23: Urine Color Yellow, Urine Clarity Clear, Urine pH 7.0, Ur Specific [place] 1.010, Urine Protein 100 H, Urine Glucose (UA) Normal, Urine Ketones Negative, Urine Occult Blood 150 H, Urine Nitrite Negative, Urine Bilirubin Negative, Urine Urobilinogen Normal, Ur Leukocyte Esterase 500 H, Urine RBC 0 SEEN, Urine WBC 10-25 SEEN, Ur Squamous Epith Cells 0 SEEN, Urine Bacteria 0 SEEN, Urine Mucus 0 SEEN Radiology Impression Abdomen/Pelvis CT 09/28/21 08:47 IMPRESSION: 1. Persistent large presacral pelvic hematoma displacing the rectum and the bladder unchanged in size since previous examination. The previously noted active bleed is not seen at this time. 2. Mild to moderate right hydronephrosis and hydroureter extending to the pelvic lesion possibly due to compression views are markedly pelvic mass. 3. Bailey catheter with the balloon may be within the urethra. 4. No new focal acute inflammatory process. Electronically Signed: Rick Rivas MD at 11:56 EDT , Assessment & Plan Assessment/Plan (1) Severe sepsis: (2) Acute UTI: (3) Hydronephrosis: QUALIFIERS: Hydronephrosis type: other Qualified Code(s): N13.39 - Other hydronephrosis PLAN: 1. Probable acute sepsis secondary to UTI likely related to indwelling Bailey catheter Patient had recent urological procedure also about 2 weeks ago Started on oral antibiotics 1 day prior, developed fever WBC count is 20.1, lactic acid 2.5, elevated creatinine Patient given IV Zosyn and vancomycin in the ED Blood cultures and urine cultures taken We will continue on IV ceftriaxone 2 g daily Follow-up on cultures 2. Acute kidney injury, likely mixed from prerenal and post renal from right hydronephrosis from pelvic hematoma Admitting creatinine is 1.33, baseline creatinine 0.82 Continue on IV fluids, repeat blood work in a.m. 3. Right-sided hydronephrosis secondary to extrinsic compression by pelvic hematoma Will consult urology 4. Recent vaginal enterocele repair, complicated by pelvic hematoma 5. DVT PPx- SCDs Charges/Coding Visit Charges Inpatient E&M: 72502 Init Hosp L3
[2021-09-28 12:55] LABS: Reflex Lactate? Y
[2021-09-28] MEDS: Acetaminophen 325 MG Tablet 650 MG PO ×2 (14:28→23:19)
[2021-09-29] VITALS (12 sets, daily range): BP systolic 115–146; BP diastolic 60–73; PULSE 71–86; RESP 16–20; TEMP 36.8–38.5; O2SAT 91–99
[2021-09-29] MEDS: 0.9% Normal Saline 1,000 ML 75 ML IV ×2 (07:50→20:57)
[2021-09-29 08:00] LABS: Bedside Glucose 114 mg/dL (74-106)
[2021-09-29 08:32] LABS: Absolute Lymphocyte Count 0.66 X10^3/uL (0.83-4.51); Basophil# 0.01 X10^3/uL; Basophil% 0.1 % (0-1); Eosinophil# 0.06 X10^3/uL; Eosinophils% 0.5 % (0-5); Hematocrit 25.7 % (37-47); Hemoglobin 8.7 g/dL (12.0-15.0); Lymphocyte # 0.66 X10^3/ul (0.83-4.51); Lymphocyte % 5.6 % (19-41); Mean Corp Hgb Conc 33.9 g/dL (32-36); Mean Corpuscular Hgb 31.9 pg (27.0-32.0); Mean Corpuscular Volume 94.1 fL (81-99); Mean Platelet Vol. 9.6 fl (6.2-12.0); Monocyte# 0.86 X10^3/uL; Monocyte% 7.3 % (0-10); NRBC Flagged by Analyzer 0 % (0-5); Neutrophil # 10.01 X10^3/uL (2.7-7.7); Neutrophil % 85.4 % (47-70); Platelet Count 253 K/mm3 (150-450); RBC Distribution Width CV 15.7 % (11.6-14.6); Red Blood Count 2.73 M/mm3 (4.2-5.4); White Blood Count 11.7 K/mm3 (4.4-11.0)
[2021-09-29 08:48] LABS: ALB/GLOB Ratio 0.7 RATIO (0.9-2.4); AST(SGOT) 21 U/L (15-37); Alanine Aminotransfer ALT/SGPT 16 U/L (13-56); Albumin, Serum 2.2 g/dL (3.2-5.0); Alkaline Phosphatase 79 U/L (45-117); Anion Gap 5 (5-15); BUN 13 mg/dL (7-18); BUN/Creat Ratio 14.4 RATIO (10-20); Calcium,Total 7.5 mg/dL (8.5-10.1); Chloride 101 mmol/L (98-107); EST Glomerular Filtration Rate 65 mL/min (>60); Est Glom Filt Rate - Afr Amer 79 mL/min (>60); Estimated Creatinine Clearance 56.44 ml/min; Globulin 3.2 g/dL (2.2-4.2); Glucose 107 mg/dL (74-106); Potassium 3.7 mmol/L (3.5-5.1); Protein, Total 5.4 g/dL (6.4-8.2); Sodium Level 132 mmol/L (136-145)
--- NOTE | 2021-09-29 10:39 | PN.HOSP_ITS ---
Subjective Subjective Follow-up on UTI: Patient was seen and examined. She feels much improved. No acute events overnight. Denies any fever or chills. Blood cultures are pending. Objective Data Objective Data Vital Signs: Vital Signs Temp Pulse Resp BP Pulse Ox 99.9 F H 77 20 H 129/60 H 92 09/29/21 07:49 09/29/21 07:49 09/29/21 07:49 09/29/21 07:49 09/29/21 07:49 Oxygen Delivery Method Room Air Weight: 80.1 kg Body Mass Index (BMI) 25.5 Intake & Output: Intake and Output for Last 24 Hours 09/27/21 09/28/21 09/29/21 23:59 23:59 23:59 Intake Total 2718.75 / 2718.75 1000 / 1000 Output Total 475 / 1225 1500 / 1500 Balance 2243.75 / 1493.75 -500 / -500 Lab / Micro Data Result Diagrams: 09/29/21 08:21 09/29/21 08:21 Labs: Laboratory Results - last 24 hr 09/28/21 13:11: Lactic Acid 2.0 09/29/21 06:00: WBC Cancelled, Corrected WBC Cancelled, RBC Cancelled, Hgb Cancelled, Hct Cancelled, MCV Cancelled, MCH Cancelled, MCHC Cancelled, RDW Std Deviation Cancelled, RDW Coeff of Nuvia Cancelled, Plt Count Cancelled, MPV Cancelled, Immature Gran % (Auto) Cancelled, Neut % (Auto) Cancelled, Lymph % (Auto) Cancelled, [place] % (Auto) Cancelled, Eos % (Auto) Cancelled, Baso % (Auto) Cancelled, Absolute Neuts (auto) Cancelled, Absolute Lymphs (auto) Cancelled, Total Counted Cancelled, Neutrophils % (Manual) Cancelled, Band Neutrophils % Cancelled, Lymphocytes % (Manual) Cancelled, Monocytes % (Manual) Cancelled, Eosinophils % (Manual) Cancelled, Basophils % (Manual) Cancelled, Metamyelocytes % Cancelled, Myelocytes % Cancelled, Promyelocytes % Cancelled, Blast Cells % Cancelled, Plasma Cell % (Manual) Cancelled, Other Cells % Cancelled, Nucleated RBC % Cancelled, Nucleated RBCs/100 WBC Cancelled, Differential Comment Cancelled, Diff Path Review Cancelled, Hypersegmented Neuts Cancelled, Atypical Lymphocytes Cancelled, Reactive Lymphocytes Cancelled, Smudge Cells Cancelled, Toxic Granulation Cancelled, Toxic Vacuolation Cancelled, Dohle Bodies Cancelled, Serge Rods Cancelled, Platelet Estimate Cancelled, Plt Morphology Comment Cancelled, RBC Morphology Cancelled, Polychromasia Cancelled, Hypochromasia Cancelled, Poikilocytosis Cancelled, Basophilic Stippling Cancelled, Anisocytosis Cancelled, Microcytosis Cancelled, Macrocytosis Cancelled, Spherocytes Cancelled, Sickle Cells Cancelled, Target Cells Cancelled, Tear Drop Cells Cancelled, Ovalocytes Cancelled, Stomatocytes Cancelled, [place] Bodies Cancelled, [place] Cells Cancelled, Bite Cells Cancelled, Crenated Cell Cancelled, Acanthocytes (Spur) Cancelled, Rouleaux Cancelled, Schistocytes Cancelled 09/29/21 06:00: Sodium Cancelled, Potassium Cancelled, Chloride Cancelled, Carbon Dioxide Cancelled, Anion Gap Cancelled, BUN Cancelled, Creatinine Cancelled, Estim Creat Clear Calc Cancelled, Est GFR (MDRD) Af Amer Cancelled, Est GFR (MDRD) Non-Af Cancelled, BUN/Creatinine Ratio Cancelled, Glucose Cancelled, Calcium Cancelled, Total Bilirubin Cancelled, AST Cancelled, ALT Cancelled, Alkaline Phosphatase Cancelled, Total Protein Cancelled, Albumin Cancelled, Globulin Cancelled, Albumin/Globulin Ratio Cancelled 09/29/21 07:41: POC Glucose 114 H 09/29/21 08:21: WBC 11.7 H, RBC 2.73 L, Hgb 8.7 L, Hct 25.7 L, MCV 94.1, MCH 31.9, MCHC 33.9, RDW Std Deviation 54.0 H, RDW Coeff of Nuvia 15.7 H, Plt Count 253, MPV 9.6, Immature Gran % (Auto) 1.100 H, Neut % (Auto) 85.4 H, Lymph % (Auto) 5.6 L, [place] % (Auto) 7.3, Eos % (Auto) 0.5, Baso % (Auto) 0.1, Absolute Neuts (auto) 10.0 H, Absolute Lymphs (auto) 0.66 L, Nucleated RBC % 0 09/29/21 08:21: Sodium 132 L, Potassium 3.7, Chloride 101, Carbon Dioxide 26.0, Anion Gap 5, BUN 13, Creatinine 0.90, Estim Creat Clear Calc 56.44, Est GFR (MDRD) Af Amer 79, Est GFR (MDRD) Non-Af 65, BUN/Creatinine Ratio 14.4, Glucose 107 H, Calcium 7.5 L, Total Bilirubin 0.80, AST 21, ALT 16, Alkaline Phosphatase 79, Total Protein 5.4 L, Albumin 2.2 L, Globulin 3.2, Albumin/Globulin Ratio 0.7 L Radiography Diagnostic Testing: Radiology Impression Abdomen/Pelvis CT 09/28/21 08:47 IMPRESSION: 1. Persistent large presacral pelvic hematoma displacing the rectum and the bladder unchanged in size since previous examination. The previously noted active bleed is not seen at this time. 2. Mild to moderate right hydronephrosis and hydroureter extending to the pelvic lesion possibly due to compression views are markedly pelvic mass. 3. Bailey catheter with the balloon may be within the urethra. 4. No new focal acute inflammatory process. Electronically Signed: Rick Rivas MD at 11:56 EDT , Physical Exam Narrative Physical exam: General: Alert, Oriented x3, Cooperative, No apparent distress, well developed HEENT: Atraumatic Oral: Moist Mucosa Neck: Supple Lungs: Clear to auscultation Cardiovascular: HS I+II, regular, no murmurs Abdomen: Distended, slightly tender to palpation, bowel Sounds Present, Soft, Extremities: No edema Assessment & Plan Assessment/Plan (1) Severe sepsis: (2) Acute UTI: (3) Hydronephrosis: QUALIFIERS: Hydronephrosis type: other Qualified Code(s): N13.39 - Other hydronephrosis PLAN: 1. Probable acute sepsis secondary to UTI likely related to indwelling Bailey catheter Patient had recent urological procedure also about 2 weeks ago; started on oral antibiotics 1 day prior to admission WBC count is 11.7 from 20.1 Blood cultures and urine cultures pending Continue on IV ceftriaxone 2 g daily Follow-up on cultures 2. Acute kidney injury, likely mixed from prerenal and post renal from right hydronephrosis from pelvic hematoma Admitting creatinine is 1.33, baseline creatinine 0.82, Cr improved today to 0.90 Continue on reduced IV fluids rate, repeat blood work in a.m. 3. Right-sided hydronephrosis secondary to extrinsic compression by pelvic hematoma Urology consulted 4. Recent vaginal enterocele repair, complicated by pelvic hematoma 5. DVT PPx- SCDs Charges/Coding Visit Charges Inpatient E&M: 07334 Subs Hosp L2
[2021-09-29] MEDS: 0.9% Saline Lock 10 ML Syringe IV (14:23)
--- NOTE | 2021-09-29 15:46 | PCM.CONS.GEN ---
Assessment & Plan Assessment/Plan (1) Severe sepsis: (2) Acute UTI: (3) Hydronephrosis: QUALIFIERS: Hydronephrosis type: other Qualified Code(s): N13.39 - Other hydronephrosis (4) Acidosis, lactic: PLAN: Seems to have significantly improved with fluids and antibiotics Continue supportive care, antibiotics and await culture results SCDs and continue ambulation 3 times daily Stool softener Renal ultrasound tomorrow Continue Bailey catheter at discharge, will plan to leave it for at least another 2 weeks Thank you for hospitalist care HPI Consult Data Date of Consult: 09/29/21 HPI Narrative HPI Narrative: YING NARANJO, is a 76 F who presents with urosepsis, right hydronephrosis and dehydration. She was frustrated with her catheter and was given a trial of void last Thursday. She presented to the office on Thursday with urinary retention and a urinary tract infection. A Bailey catheter was placed and she was started on Levaquin. She developed a fever to 105 at home and presented to the emergency room on Thursday morning. She is feeling better today after having received intravenous fluids, antibiotics and supportive care. She is still somewhat nauseated but is passing gas and having small bowel movements. She has been having fevers on and off since admission but less so than at home. She has been ambulatory in the hallways and up to the chair earlier today. [facility] Medical History Back pain Cancer Cataracts, bilateral DVT (deep venous thrombosis) Easy bruising Glaucoma History of blood clots History of colitis History of edema History of irregular heartbeat History of pneumonia History of stress test Leg cramps Melanoma Mitral valve problem Pelvic hematoma in female Post-menopausal Shortness of breath on exertion Skin cancer Vaginal enterocele Wears glasses Home Medications garlic 1 mg PO DAILY 09/30/13 [History Last Taken Unknown] multivitamin with folic acid [Thera] 1 tab PO DAILY 09/30/13 [History Last Taken Unknown] omega-3 fatty acids-fish oil 1 ea PO DAILY 09/30/13 [History Last Taken Unknown] digestive enzymes 1 cap PO DAILY 05/06/21 [History Last Taken Unknown] hawthorn 500 mg PO DAILY 09/03/21 [History Last Taken Unknown] Allergy/AdvReac Type Severity Reaction Status Date / Time azithromycin Allergy Unknown unknown Verified 09/28/21 08:35 NSAIDS (Non-Steroidal Allergy Unknown rash Verified 09/28/21 08:35 Anti-Inflamma PAIN MEDS AdvReac Rash Uncoded 09/28/21 08:35 Family History Other Melanoma Surgical History History of appendectomy History of hernia repair History of hysterectomy History of knee surgery History of tonsillectomy History of tubal ligation Hx of melanoma excision Social History Smoking Status: Never smoker alcohol intake: never substance use type: does not use ROS Constitutional Constitutional: Reports fatigue, fever(s), poor appetite and weakness Eyes Eyes: Reports systems reviewed and no addt'l complaints, except as documented ENT HEENT: Reports systems reviewed and no addt'l complaints, except as documented Cardiovascular Cardiovascular: Reports fatigue and nausea; Denies chest pain, dyspnea, leg edema or vomiting Respiratory/Chest Respiratory/Chest: Denies chest tightness, cough or dyspnea Gastrointestinal Gastrointestinal: Reports bloating, constipation and nausea; Denies abdominal pain or vomiting Genitourinary Genitourinary: Reports dysuria and other Details: Retention of urine Musculoskeletal Musculoskeletal: Reports systems reviewed and no addt'l complaints, except as documented Integumentary Integumentary: Reports systems reviewed and no addt'l complaints, except as documented Neurologic Neurologic: Reports systems reviewed and no addt'l complaints, except as documented Psychiatric Psychiatric: Reports systems reviewed and no addt'l complaints, except as documented Endocrine Endocrinology: Reports systems reviewed and no addt'l complaints, except as documented Hematologic/Lymphatic Hematologic/Lymphatic: Reports systems reviewed and no addt'l complaints, except as documented Allergic/Immunologic Allergic/Immunologic: Reports systems reviewed and no addt'l complaints, except as documented Physical Exam Const alert, oriented x3 and no apparent distress General Appearance: cooperative and comfortable; Negative for in distress Orientation / Consciousness: awake HEENT normocephalic, head/scalp atraumatic, hearing grossly normal bilaterally, external ears normal, external nose normal and moist oral mucous membranes Eyes conjunctivae normal General Eye: normal appearance of both eyes Neck supple General: trachea midline Lymph Lymphatic: no lymphedema noted Chest Chest: symmetrical chest wall rise Resp normal respiratory effort, normal air movement, no retractions and no use of accessory muscles Effort and Inspection: able to speak in complete sentences and symmetric chest movement Cardio regular rate and regular rhythm GI soft to palpation and non-tender Inspection: abdominal distention Bladder / Kidney Exam: catheter in place urethral (Draining clear yellow urine) and No CVA tenderness Extremity normal to inspection and no calf tenderness Extremity Narrative: SCDs are not visible on the bed or on the patient. They are reordered and I spoke with the nurse who will obtain them as soon as possible. Skin no rashes or lesions noted, no wounds, skin turgor normal, no jaundice, no petechiae and no mottling Neuro oriented x3, CN's II-XII intact bilaterally and moves all extremities Psych mental status grossly normal and thought process normal Lab / Micro Data Result Diagrams: 09/29/21 08:21 09/29/21 08:21 Labs: Laboratory Results - last 24 hr 09/29/21 06:00: WBC Cancelled, Corrected WBC Cancelled, RBC Cancelled, Hgb Cancelled, Hct Cancelled, MCV Cancelled, MCH Cancelled, MCHC Cancelled, RDW Std Deviation Cancelled, RDW Coeff of Nuvia Cancelled, Plt Count Cancelled, MPV Cancelled, Immature Gran % (Auto) Cancelled, Neut % (Auto) Cancelled, Lymph % (Auto) Cancelled, [place] % (Auto) Cancelled, Eos % (Auto) Cancelled, Baso % (Auto) Cancelled, Absolute Neuts (auto) Cancelled, Absolute Lymphs (auto) Cancelled, Total Counted Cancelled, Neutrophils % (Manual) Cancelled, Band Neutrophils % Cancelled, Lymphocytes % (Manual) Cancelled, Monocytes % (Manual) Cancelled, Eosinophils % (Manual) Cancelled, Basophils % (Manual) Cancelled, Metamyelocytes % Cancelled, Myelocytes % Cancelled, Promyelocytes % Cancelled, Blast Cells % Cancelled, Plasma Cell % (Manual) Cancelled, Other Cells % Cancelled, Nucleated RBC % Cancelled, Nucleated RBCs/100 WBC Cancelled, Differential Comment Cancelled, Diff Path Review Cancelled, Hypersegmented Neuts Cancelled, Atypical Lymphocytes Cancelled, Reactive Lymphocytes Cancelled, Smudge Cells Cancelled, Toxic Granulation Cancelled, Toxic Vacuolation Cancelled, Dohle Bodies Cancelled, Serge Rods Cancelled, Platelet Estimate Cancelled, Plt Morphology Comment Cancelled, RBC Morphology Cancelled, Polychromasia Cancelled, Hypochromasia Cancelled, Poikilocytosis Cancelled, Basophilic Stippling Cancelled, Anisocytosis Cancelled, Microcytosis Cancelled, Macrocytosis Cancelled, Spherocytes Cancelled, Sickle Cells Cancelled, Target Cells Cancelled, Tear Drop Cells Cancelled, Ovalocytes Cancelled, Stomatocytes Cancelled, [place] Bodies Cancelled, [place] Cells Cancelled, Bite Cells Cancelled, Crenated Cell Cancelled, Acanthocytes (Spur) Cancelled, Rouleaux Cancelled, Schistocytes Cancelled 09/29/21 06:00: Sodium Cancelled, Potassium Cancelled, Chloride Cancelled, Carbon Dioxide Cancelled, Anion Gap Cancelled, BUN Cancelled, Creatinine Cancelled, Estim Creat Clear Calc Cancelled, Est GFR (MDRD) Af Amer Cancelled, Est GFR (MDRD) Non-Af Cancelled, BUN/Creatinine Ratio Cancelled, Glucose Cancelled, Calcium Cancelled, Total Bilirubin Cancelled, AST Cancelled, ALT Cancelled, Alkaline Phosphatase Cancelled, Total Protein Cancelled, Albumin Cancelled, Globulin Cancelled, Albumin/Globulin Ratio Cancelled 09/29/21 07:41: POC Glucose 114 H 09/29/21 08:21: WBC 11.7 H, RBC 2.73 L, Hgb 8.7 L, Hct 25.7 L, MCV 94.1, MCH 31.9, MCHC 33.9, RDW Std Deviation 54.0 H, RDW Coeff of Nuvia 15.7 H, Plt Count 253, MPV 9.6, Immature Gran % (Auto) 1.100 H, Neut % (Auto) 85.4 H, Lymph % (Auto) 5.6 L, [place] % (Auto) 7.3, Eos % (Auto) 0.5, Baso % (Auto) 0.1, Absolute Neuts (auto) 10.0 H, Absolute Lymphs (auto) 0.66 L, Nucleated RBC % 0 09/29/21 08:21: Sodium 132 L, Potassium 3.7, Chloride 101, Carbon Dioxide 26.0, Anion Gap 5, BUN 13, Creatinine 0.90, Estim Creat Clear Calc 56.44, Est GFR (MDRD) Af Amer 79, Est GFR (MDRD) Non-Af 65, BUN/Creatinine Ratio 14.4, Glucose 107 H, Calcium 7.5 L, Total Bilirubin 0.80, AST 21, ALT 16, Alkaline Phosphatase 79, Total Protein 5.4 L, Albumin 2.2 L, Globulin 3.2, Albumin/Globulin Ratio 0.7 L
[2021-09-29] MEDS: Acetaminophen 325 MG Tablet 650 MG PO (18:30)
[2021-09-29] MEDS: Docusate Sodium 100 MG Capsule PO (21:01)
[2021-09-30] VITALS (12 sets, daily range): BP systolic 117–143; BP diastolic 65–74; PULSE 66–78; RESP 14–16; TEMP 36.6–38.5; O2SAT 92–100
[2021-09-30] MEDS: Acetaminophen 325 MG Tablet 650 MG PO ×2 (03:14→17:02)
[2021-09-30 05:28] LABS: Absolute Lymphocyte Count 0.71 X10^3/uL (0.83-4.51); Basophil# 0.02 X10^3/uL; Basophil% 0.2 % (0-1); Eosinophils% 2.3 % (0-5); Hematocrit 24.6 % (37-47); Hemoglobin 8.2 g/dL (12.0-15.0); Lymphocyte # 0.71 X10^3/ul (0.83-4.51); Lymphocyte % 8.1 % (19-41); Mean Corp Hgb Conc 33.3 g/dL (32-36); Mean Corpuscular Hgb 31.1 pg (27.0-32.0); Mean Corpuscular Volume 93.2 fL (81-99); Mean Platelet Vol. 9.8 fl (6.2-12.0); Monocyte# 0.83 X10^3/uL; Monocyte% 9.4 % (0-10); NRBC Flagged by Analyzer 0 % (0-5); Neutrophil # 6.98 X10^3/uL (2.7-7.7); Neutrophil % 79.3 % (47-70); Platelet Count 260 K/mm3 (150-450); RBC Distribution Width CV 15.9 % (11.6-14.6); RBC Distribution Width SD 54.4 fl (35.1-43.9); Red Blood Count 2.64 M/mm3 (4.2-5.4); White Blood Count 8.8 K/mm3 (4.4-11.0)
[2021-09-30 05:53] LABS: ALB/GLOB Ratio 0.7 RATIO (0.9-2.4); AST(SGOT) 32 U/L (15-37); Alanine Aminotransfer ALT/SGPT 22 U/L (13-56); Albumin, Serum 2.1 g/dL (3.2-5.0); Alkaline Phosphatase 72 U/L (45-117); Anion Gap 7 (5-15); BUN 10 mg/dL (7-18); BUN/Creat Ratio 11.4 RATIO (10-20); Calcium,Total 7.4 mg/dL (8.5-10.1); Chloride 104 mmol/L (98-107); Creatinine, Serum 0.88 mg/dL (0.55-1.02); EST Glomerular Filtration Rate 67 mL/min (>60); Est Glom Filt Rate - Afr Amer 81 mL/min (>60); Estimated Creatinine Clearance 57.73 ml/min; Globulin 3.2 g/dL (2.2-4.2); Glucose 102 mg/dL (74-106); Potassium 3.3 mmol/L (3.5-5.1); Protein, Total 5.3 g/dL (6.4-8.2); Sodium Level 134 mmol/L (136-145)
--- NOTE | 2021-09-30 08:44 | US_ITS ---
STUDY: RENAL ULTRASOUND - COMPLETE REASON FOR EXAM: Female, 76 years old. Right hydronephrosis with pyelonephritis TECHNIQUE: Ultrasound evaluation of the kidneys was performed with real-time and static hauser-scale imaging. COMPARISON: None. FINDINGS: RIGHT KIDNEY: Normal location of the right kidney, which is normal in size. The right kidney measures 12.9 cm x 5 cm x 4.2 cm. There is a normal cortex of the right kidney. The renal cortex measures 1.1 cm. There is no right renal mass or cyst. There are no right renal calculi. There is mild hydronephrosis of the right kidney. DISTAL RIGHT URETER: There is non-visualization of the distal right ureter. There is no demonstrated right ureterovesical junction calculus. There is no demonstrated right ureteral jet. LEFT KIDNEY: Normal location of the left kidney, which is normal in size. The left kidney measures 11.5 cm x 5.5 cm x 5 cm. There is a normal cortex of the left kidney. The renal cortex measures 1.6 cm. There is no left renal mass or cyst. There are no left renal calculi. There is no left hydronephrosis. DISTAL LEFT URETER: There is non-visualization of the distal left ureter. There is no demonstrated left ureterovesical junction calculus. There is no demonstrated left ureteral jet. BLADDER: A GORE catheter is seen within the urinary bladder. US/Kidney and Bladder IMPRESSION: Mild degree of right hydronephrosis. Electronically Signed: Ziggy Nelson MD at 9:04 EDT ,
[2021-09-30] MEDS: Docusate Sodium 100 MG Capsule PO (09:05)
[2021-09-30] MEDS: Potassium Chloride Oral Tablet 20 MEQ 40 MEQ PO (10:43)
--- NOTE | 2021-09-30 11:48 | PCM.PN.HOSP ---
Subjective Subjective Follow-up on UTI: Patient was seen and examined. She feels much improved. No acute events overnight. Blood cultures are negative. Urine cultures are pending. Objective Data Objective Data Vital Signs: Vital Signs Temp Pulse Resp BP Pulse Ox 97.9 F 70 14 143/66 H 100 09/30/21 09:11 09/30/21 11:22 09/30/21 09:11 09/30/21 09:11 09/30/21 09:11 Oxygen Delivery Method Room Air Weight: 81.4 kg Body Mass Index (BMI) 25.5 Intake & Output: Intake and Output for Last 24 Hours 09/28/21 09/29/21 09/30/21 23:59 23:59 23:59 Intake Total 2718.75 / 2718.75 2541.25 / 3441.25 1972.5 / 1972.5 Output Total 475 / 1225 2100 / 4150 2625 / 2625 Balance 2243.75 / 1493.75 441.25 / -708.75 -652.5 / -652.5 Lab / Micro Data Result Diagrams: 09/30/21 05:06 09/30/21 05:06 Labs: Laboratory Results - last 24 hr 09/30/21 05:06: WBC 8.8, RBC 2.64 L, Hgb 8.2 L, Hct 24.6 L, MCV 93.2, MCH 31.1, MCHC 33.3, RDW Std Deviation 54.4 H, RDW Coeff of Nuvia 15.9 H, Plt Count 260, MPV 9.8, Immature Gran % (Auto) 0.700, Neut % (Auto) 79.3 H, Lymph % (Auto) 8.1 L, [place] % (Auto) 9.4, Eos % (Auto) 2.3, Baso % (Auto) 0.2, Absolute Neuts (auto) 7.0, Absolute Lymphs (auto) 0.71 L, Nucleated RBC % 0 09/30/21 05:06: Sodium 134 L, Potassium 3.3 L, Chloride 104, Carbon Dioxide 23.0, Anion Gap 7, BUN 10, Creatinine 0.88, Estim Creat Clear Calc 57.73, Est GFR (MDRD) Af Amer 81, Est GFR (MDRD) Non-Af 67, BUN/Creatinine Ratio 11.4, Glucose 102, Calcium 7.4 L, Total Bilirubin 0.70, AST 32, ALT 22, Alkaline Phosphatase 72, Total Protein 5.3 L, Albumin 2.1 L, Globulin 3.2, Albumin/Globulin Ratio 0.7 L Micro: Microbiology 09/29/21 15:04 Urine Catheter - Bailey Urine Culture - Preliminary Culture exhibits no growth. 09/28/21 09:11 Blood Culture (Wb) - Left Hand Blood Culture - Preliminary No growth in 48 hours. 09/28/21 08:51 Blood Culture (Wb) - Anticubital Left Blood Culture - Preliminary No growth in 48 hours. Radiography Diagnostic Testing: Radiology Impression Renal Ultrasound 09/30/21 08:44 IMPRESSION: Mild degree of right hydronephrosis. Electronically Signed: Ziggy Nelson MD at 9:04 EDT , Physical Exam Narrative Physical exam: General: Alert, Oriented x3, Cooperative, No apparent distress, well developed HEENT: Atraumatic Oral: Moist Mucosa Neck: Supple Lungs: Clear to auscultation Cardiovascular: HS I+II, regular, no murmurs Abdomen: Distended, slightly tender to palpation, bowel Sounds Present, Soft, Extremities: No edema Assessment & Plan Assessment/Plan (1) Severe sepsis: (2) Acute UTI: (3) Hydronephrosis: QUALIFIERS: Hydronephrosis type: other Qualified Code(s): N13.39 - Other hydronephrosis PLAN: 1. Acute sepsis secondary to UTI likely related to indwelling Bailey catheter, resolving Patient had recent urological procedure also about 2 weeks ago; started on oral antibiotics 1 day prior to admission WBC count is 8.8, down from 20.1 on admission Blood cultures negative and urine cultures pending Continue on IV ceftriaxone 2 g daily Follow-up on cultures 2. Acute kidney injury, likely mixed from prerenal and post renal from right hydronephrosis from pelvic hematoma Admitting creatinine is 1.33, baseline creatinine 0.82, Cr improved today to 0.88 DC IV fluids, repeat blood work in a.m. 3. Hypokalemia, K 3.3, replaced, recheck in am 4. Right-sided hydronephrosis secondary to extrinsic compression by pelvic hematoma Urology consulted 5. Recent vaginal enterocele repair, complicated by pelvic hematoma 5. DVT PPx- SCDs Charges/Coding Visit Charges Inpatient E&M: 79300 Subs Hosp L2
--- NOTE | 2021-09-30 14:13 | CASEMGMT ---
RN ABHI Face to Face with patient for initial transition planning/care coordination assessment. RN CM introduced self and role at [facility]. Patient lying in bed, alert and oriented, at bedside. Patient willing to participate in assessment and is able to answer all questions appropriately. Care providers, pharmacy, and demographics verified. Patient wishes to discharge home, denies need for home health at this time. Will monitor progress with therapy for need for HHC at discharge. Patient states she has no further needs or concerns at this time. CM to follow for discharge planning needs that may arise. PCP: Andre Specialists: [facility] Preferred Pharmacy: [facility] retail at discharge [place] [facility] [place] none Living Will/HPOA: none LNOK: , son Living Arrangements: Patient lives with in a single story home with 7 steps and railing to enter the home. Daughter lives next door. Patient states she is independent at home. Transportation: Behavior Therapist DME/HHC: Patient states she has shower chair, raised toilet, cane, crutches, grab bars, walker at home. Patient has access to generator and solar energy at home. No previous HHC or SNF Disposition Plan: Patient to discharge home with family support and follow-up plans in place. Will monitor for need for HHC at discharge. Lona CALVO, RN, CM
--- NOTE | 2021-09-30 18:15 | PCM.PROGNOTE ---
Subjective Subjective Feeling better today. Was cold earlier, now hot. Is ambulating. Now having lots of diarrhea, green. Still feeling really bloated but the nausea has resolved. Was able to eat lunch ok today. Has SCD's on when in bed. Is up in chair at present. Objective Data Objective Data Vital Signs: Vital Signs Temp Pulse Resp BP Pulse Ox 101.3 F H 78 14 140/74 H 94 09/30/21 16:54 09/30/21 16:54 09/30/21 16:54 09/30/21 16:54 09/30/21 16:54 Oxygen Delivery Method Room Air Weight: 81.4 kg Body Mass Index (BMI) 25.5 Intake & Output: Intake and Output for Last 24 Hours 09/28/21 09/29/21 09/30/21 23:59 23:59 23:59 Intake Total 2718.75 / 2718.75 2541.25 / 3441.25 2372.5 / 2372.5 Output Total 475 / 1225 2100 / 4150 3000 / 3000 Balance 2243.75 / 1493.75 441.25 / -708.75 -627.5 / -627.5 Lab / Micro Data Result Diagrams: 09/30/21 05:06 09/30/21 05:06 Labs: Laboratory Results - last 24 hr 09/30/21 05:06: WBC 8.8, RBC 2.64 L, Hgb 8.2 L, Hct 24.6 L, MCV 93.2, MCH 31.1, MCHC 33.3, RDW Std Deviation 54.4 H, RDW Coeff of Nuvia 15.9 H, Plt Count 260, MPV 9.8, Immature Gran % (Auto) 0.700, Neut % (Auto) 79.3 H, Lymph % (Auto) 8.1 L, [place] % (Auto) 9.4, Eos % (Auto) 2.3, Baso % (Auto) 0.2, Absolute Neuts (auto) 7.0, Absolute Lymphs (auto) 0.71 L, Nucleated RBC % 0 09/30/21 05:06: Sodium 134 L, Potassium 3.3 L, Chloride 104, Carbon Dioxide 23.0, Anion Gap 7, BUN 10, Creatinine 0.88, Estim Creat Clear Calc 57.73, Est GFR (MDRD) Af Amer 81, Est GFR (MDRD) Non-Af 67, BUN/Creatinine Ratio 11.4, Glucose 102, Calcium 7.4 L, Total Bilirubin 0.70, AST 32, ALT 22, Alkaline Phosphatase 72, Total Protein 5.3 L, Albumin 2.1 L, Globulin 3.2, Albumin/Globulin Ratio 0.7 L Micro: Microbiology 09/29/21 15:04 Urine Catheter - Escobar Urine Culture - Preliminary Culture exhibits no growth. 09/28/21 09:11 Blood Culture (Wb) - Left Hand Blood Culture - Preliminary No growth in 48 hours. 09/28/21 08:51 Blood Culture (Wb) - Anticubital Left Blood Culture - Preliminary No growth in 48 hours. Radiography Diagnostic Testing: Radiology Impression Renal Ultrasound 09/30/21 08:44 IMPRESSION: Mild degree of right hydronephrosis. Electronically Signed: Ziggy Nelson MD at 9:04 EDT , Physical Exam Const alert, oriented x3 and no apparent distress Resp normal respiratory effort, normal air movement and no retractions GI soft to palpation and non-tender Inspection: abdominal distention no CVA tenderness Narrative: escobar draining clear yellow Extremity Extremity Narrative: no lower extremity edema Assessment & Plan Assessment/Plan (1) Severe sepsis: (2) Acute UTI: (3) Hydronephrosis: QUALIFIERS: Hydronephrosis type: other Qualified Code(s): N13.39 - Other hydronephrosis (4) Pelvic hematoma in female: (5) Acidosis, lactic: PLAN: culture from the office Thursday grew pansensitive, I will bring report tomorrow send stool for cdiff continue antibiotics and supportive care I am not planning intervention for the hydronephrosis at this time, mild on the ultrasound and will just plan to repeat that in 1-2 weeks. will go home with the escobar at time of discharge
[2021-10-01] VITALS (8 sets, daily range): BP systolic 137–144; BP diastolic 70–81; PULSE 71–83; RESP 14–18; TEMP 36.5–37.2; O2SAT 94–97
[2021-10-01 06:24] LABS: Absolute Lymphocyte Count 0.96 X10^3/uL (0.83-4.51); Absolute Neutrophil Count 5.7 X10^3/uL (2.0-7.7); Basophil# 0.03 X10^3/uL; Basophil% 0.4 % (0-1); Eosinophil# 0.28 X10^3/uL; Eosinophils% 3.6 % (0-5); Hematocrit 26.6 % (37-47); Lymphocyte # 0.96 X10^3/ul (0.83-4.51); Lymphocyte % 12.3 % (19-41); Mean Corp Hgb Conc 33.8 g/dL (32-36); Mean Corpuscular Hgb 31.6 pg (27.0-32.0); Mean Corpuscular Volume 93.3 fL (81-99); Monocyte# 0.77 X10^3/uL; Monocyte% 9.9 % (0-10); NRBC Flagged by Analyzer 0 % (0-5); Neutrophil # 5.66 X10^3/uL (2.7-7.7); Neutrophil % 72.6 % (47-70); POSITIVE MORPHOLOGY YES; Platelet Count 267 K/mm3 (150-450); RBC Distribution Width SD 55.5 fl (35.1-43.9); Red Blood Count 2.85 M/mm3 (4.2-5.4); White Blood Count 7.8 K/mm3 (4.4-11.0)
[2021-10-01 06:29] LABS: Differential Indicated SCAN CRITERIA MET
[2021-10-01 06:43] LABS: Anisocytosis 1+
[2021-10-01 07:03] LABS: ALB/GLOB Ratio 0.7 RATIO (0.9-2.4); AST(SGOT) 60 U/L (15-37); Alanine Aminotransfer ALT/SGPT 44 U/L (13-56); Albumin, Serum 2.4 g/dL (3.2-5.0); Alkaline Phosphatase 80 U/L (45-117); Anion Gap 5 (5-15); BUN 12 mg/dL (7-18); Calcium,Total 7.9 mg/dL (8.5-10.1); Chloride 104 mmol/L (98-107); EST Glomerular Filtration Rate 75 mL/min (>60); Est Glom Filt Rate - Afr Amer 90 mL/min (>60); Globulin 3.4 g/dL (2.2-4.2); Glucose 95 mg/dL (74-106); Potassium 3.6 mmol/L (3.5-5.1); Protein, Total 5.8 g/dL (6.4-8.2); Sodium Level 133 mmol/L (136-145)
[2021-10-01] MEDS: 0.9% Saline Lock 10 ML Syringe IV (09:24)
[2021-10-01] MEDS: Docusate Sodium 100 MG Capsule PO (09:25)
--- NOTE | 2021-10-01 11:48 | PN.URO_ITS ---
Subjective Subjective Much more distended today. when eating earlier, belching breakfast up. Still with diarrhea. No other specific pain complaints, just says she doesn't feel well. Objective Data Objective Data Vital Signs: Vital Signs Temp Pulse Resp BP Pulse Ox 97.7 F L 74 16 137/81 H 95 10/01/21 09:44 10/01/21 09:44 10/01/21 09:44 10/01/21 09:44 10/01/21 09:44 Oxygen Delivery Method Room Air Weight: 82.1 kg Body Mass Index (BMI) 25.5 Intake & Output: Intake and Output for Last 24 Hours 09/29/21 09/30/21 10/01/21 23:59 23:59 23:59 Intake Total 2541.25 / 3441.25 2722.5 / 2962.5 550 / 550 Output Total 2100 / 4150 3600 / 4650 1900 / 1900 Balance 441.25 / -708.75 -877.5 / -1687.5 -1350 / -1350 Lab / Micro Data Result Diagrams: 10/01/21 05:55 10/01/21 05:55 Labs: Laboratory Results - last 24 hr 10/01/21 05:55: WBC 7.8, RBC 2.85 L, Hgb 9.0 L, Hct 26.6 L, MCV 93.3, MCH 31.6, MCHC 33.8, RDW Std Deviation 55.5 H, RDW Coeff of Nuvia 16.0 H, Plt Count 267, MPV 10.0, Immature Gran % (Auto) 1.200 H, Neut % (Auto) 72.6 H, Lymph % (Auto) 12.3 L, [place] % (Auto) 9.9, Eos % (Auto) 3.6, Baso % (Auto) 0.4, Absolute Neuts (auto) 5.7, Absolute Lymphs (auto) 0.96, Nucleated RBC % 0, Anisocytosis 1+ 10/01/21 05:55: Sodium 133 L, Potassium 3.6, Chloride 104, Carbon Dioxide 24.0, Anion Gap 5, BUN 12, Creatinine 0.80, Estim Creat Clear Calc 63.50, Est GFR (MDRD) Af Amer 90, Est GFR (MDRD) Non-Af 75, BUN/Creatinine Ratio 15.0, Glucose 95, Calcium 7.9 L, Total Bilirubin 0.80, AST 60 H, ALT 44, Alkaline Phosphatase 80, Total Protein 5.8 L, Albumin 2.4 L, Globulin 3.4, Albumin/Globulin Ratio 0.7 L Micro: Microbiology 09/29/21 15:04 Urine Catheter - Escobar Urine Culture - Preliminary Culture exhibits no growth. 09/28/21 09:11 Blood Culture (Wb) - Left Hand Blood Culture - Preliminary No growth in 48 hours. 09/28/21 08:51 Blood Culture (Wb) - Anticubital Left Blood Culture - Preliminary No growth in 48 hours. Physical Exam Const alert, oriented x3 and no apparent distress Neck supple General: normal visual inspection and trachea midline Resp normal respiratory effort, normal air movement, no retractions and no use of accessory muscles Cardio regular rate and regular rhythm GI GI Narrative: much more distended than yesterday. Inspection: abdominal distention Narrative: escobar draining clear yellow Bladder / Kidney Exam: catheter in place and no CVA tenderness Back/Spine no CVA tenderness Extremity normal to inspection Skin no rashes or lesions noted, no wounds, skin turgor normal, no jaundice, no petechiae and no mottling Assessment & Plan Assessment/Plan (1) Severe sepsis: (2) Acute UTI: (3) Hydronephrosis: QUALIFIERS: Hydronephrosis type: other Qualified Code(s): N13.39 - Other hydronephrosis (4) Acidosis, lactic: (5) Pelvic hematoma in female: (6) Vaginal enterocele: (7) Ileus due to infection: PLAN: NPO, consult general surgery for opinion continue escobar and supportive care urine culture with ecoli, pansensitive, report given to desk to scan into chart
--- NOTE | 2021-10-01 11:50 | RAD_ITS ---
STUDY: X-RAY - ABDOMEN/PELVIS REASON FOR EXAM: Female, 76 years old. Abdominal distention TECHNIQUE: Single AP view of the abdomen / pelvis. COMPARISON: None. FINDINGS: Normal visualized lung bases. There is a paralytic ileus of the small intestine with mild gaseous distention. Gas is also seen throughout the colon down to the rectum. The visualized liver, spleen and kidneys are grossly normal in size and morphology. Normal soft tissue structures. There are diffuse degenerative changes of the visualized lumbar spine. RAD/Abdomen Single View IMPRESSION: Gas is seen throughout the small bowel loops and colon down to the rectum. Findings are suggestive of ileus. Electronically Signed: Ziggy Nelson MD at 12:27 EDT ,
[2021-10-01] MEDS: Bisacodyl 10 MG Suppository RC (12:45)
--- NOTE | 2021-10-01 13:52 | PCM.CONS.GEN ---
Assessment & Plan Assessment/Plan (1) Ileus due to infection: PLAN: I have been consulted in conjunction with Dr. Sanchez. Recommend bowel rest and conservative measures. Continue NPO. Recommend ambulation. Obtain KUB tomorrow morning. No surgical intervention recommended at this time. We will continue to monitor. Patient has had the opportunity to ask and have questions answered. Patient verbally understands and agrees with the plan. Thank you for allowing us to participate in this patient's care. HPI Consult Data Date of Consult: 10/02/21 HPI Narrative HPI Narrative: YING NARANJO, is a 76 F who presents to the ED with fever, abdominal pain and back pain. Patient had an enterocele procedure completed on 09/09/21. Post-operatively she bled and was transferred to [facility]. Per patient, testing was completed and she was given 1 unit of blood. No surgery was performed. She was noted to have a large sacral hematoma form surgery which is compressing on her rectum. Patient states she presented to our ED with abdominal pain, back pain and fever on 09/28. Patient states she has not had any flatus since surgery. She notes loose mashed potatoes like stool output. She denies nausea, vomiting. She is getting full quickly. She also notes lots of belching. CT scan of the ab/pel which demonstrated: IMPRESSION: 1. Persistent large presacral pelvic hematoma displacing the rectum and the bladder unchanged in size since previous examination. The previously noted active bleed is not seen at this time. 2. Mild to moderate right hydronephrosis and hydroureter extending to the pelvic lesion possibly due to compression views are markedly pelvic mass. 3. Bailey catheter with the balloon may be within the urethra. 4. No new focal acute inflammatory process. [facility] Medical History (Updated 10/01/21 @ 12:[address] Myrna Ventura MD) Back pain Cancer Cataracts, bilateral DVT (deep venous thrombosis) Easy bruising Glaucoma History of blood clots History of colitis History of edema History of irregular heartbeat History of pneumonia History of stress test Ileus due to infection Leg cramps Melanoma Mitral valve problem Pelvic hematoma in female Post-menopausal Shortness of breath on exertion Skin cancer Vaginal enterocele Wears glasses Home Medications garlic 1 mg PO DAILY 09/30/13 [History Last Taken Unknown] multivitamin with folic acid [Thera] 1 tab PO DAILY 09/30/13 [History Last Taken Unknown] omega-3 fatty acids-fish oil 1 ea PO DAILY 09/30/13 [History Last Taken Unknown] digestive enzymes 1 cap PO DAILY 05/06/21 [History Last Taken Unknown] hawthorn 500 mg PO DAILY 09/03/21 [History Last Taken Unknown] Allergy/AdvReac Type Severity Reaction Status Date / Time azithromycin Allergy Unknown unknown Verified 09/28/21 08:35 NSAIDS (Non-Steroidal Allergy Unknown rash Verified 09/28/21 08:35 Anti-Inflamma PAIN MEDS AdvReac Rash Uncoded 09/28/21 08:35 Family History Other Melanoma Surgical History History of appendectomy History of hernia repair History of hysterectomy History of knee surgery History of tonsillectomy History of tubal ligation Hx of melanoma excision Social History Smoking Status: Never smoker alcohol intake: never substance use type: does not use ROS Constitutional Constitutional: Reports systems reviewed and no addt'l complaints, except as documented Eyes Eyes: Reports systems reviewed and no addt'l complaints, except as documented ENT HEENT: Reports systems reviewed and no addt'l complaints, except as documented Cardiovascular Cardiovascular: Reports systems reviewed and no addt'l complaints, except as documented Respiratory/Chest Respiratory/Chest: Reports systems reviewed and no addt'l complaints, except as documented Gastrointestinal Gastrointestinal: Reports systems reviewed and no addt'l complaints, except as documented Genitourinary Genitourinary: Reports systems reviewed and no addt'l complaints, except as documented Musculoskeletal Musculoskeletal: Reports systems reviewed and no addt'l complaints, except as documented Integumentary Integumentary: Reports systems reviewed and no addt'l complaints, except as documented Neurologic Neurologic: Reports systems reviewed and no addt'l complaints, except as documented Psychiatric Psychiatric: Reports systems reviewed and no addt'l complaints, except as documented Endocrine Endocrinology: Reports systems reviewed and no addt'l complaints, except as documented Hematologic/Lymphatic Hematologic/Lymphatic: Reports systems reviewed and no addt'l complaints, except as documented Allergic/Immunologic Allergic/Immunologic: Reports systems reviewed and no addt'l complaints, except as documented Physical Exam Const alert, oriented x3 and no apparent distress HEENT normocephalic Eyes PERRL Neck full ROM Lymph Lymphatic: no lymphadenopathy noted Resp normal respiratory effort and clear to auscultation bilaterally Cardio regular rate and regular rhythm GI Inspection: abdominal distention Auscultation: hypoactive bowel sounds Palpation: tender LLQ, RLQ, LUQ and RUQ Extremity normal to inspection Skin Rashes: rashes noted Bilateral lower extremities and abdomen Neuro no focal motor deficits and no sensory deficits noted Psych mental status grossly normal and thought process normal Lab / Micro Data Result Diagrams: 10/01/21 05:55 10/01/21 05:55 Labs: Laboratory Results - last 24 hr 10/01/21 05:55: WBC 7.8, RBC 2.85 L, Hgb 9.0 L, Hct 26.6 L, MCV 93.3, MCH 31.6, MCHC 33.8, RDW Std Deviation 55.5 H, RDW Coeff of Nuvia 16.0 H, Plt Count 267, MPV 10.0, Immature Gran % (Auto) 1.200 H, Neut % (Auto) 72.6 H, Lymph % (Auto) 12.3 L, [place] % (Auto) 9.9, Eos % (Auto) 3.6, Baso % (Auto) 0.4, Absolute Neuts (auto) 5.7, Absolute Lymphs (auto) 0.96, Nucleated RBC % 0, Anisocytosis 1+ 10/01/21 05:55: Sodium 133 L, Potassium 3.6, Chloride 104, Carbon Dioxide 24.0, Anion Gap 5, BUN 12, Creatinine 0.80, Estim Creat Clear Calc 63.50, Est GFR (MDRD) Af Amer 90, Est GFR (MDRD) Non-Af 75, BUN/Creatinine Ratio 15.0, Glucose 95, Calcium 7.9 L, Total Bilirubin 0.80, AST 60 H, ALT 44, Alkaline Phosphatase 80, Total Protein 5.8 L, Albumin 2.4 L, Globulin 3.4, Albumin/Globulin Ratio 0.7 L Micro: Microbiology 09/29/21 15:04 Urine Catheter - Bailey Urine Culture - Final Culture exhibits no growth. 10/01/21 09:35 Stool C. difficile DNA Amplification - Final Radiology Impression KUB X-Ray 10/01/21 11:50 IMPRESSION: Gas is seen throughout the small bowel loops and colon down to the rectum. Findings are suggestive of ileus. Electronically Signed: Ziggy Nelson MD at 12:27 EDT , Charges/Coding Visit Charges Office Visits / Consults: [id number] IP Consult L3
[2021-10-01] MEDS: Fleet Enema 1 ML RC (17:03)
--- NOTE | 2021-10-01 18:09 | NURSING ---
agree with student nurse Diana Barros documentation. With student during med pass and assessment
[2021-10-01] MEDS: 0.9% Normal Saline 1,000 ML 100 ML IV (18:22)
--- NOTE | 2021-10-01 18:43 | PN.HOSP_ITS ---
Subjective Subjective Patient was seen and examined today, her abdomen appears distended and tympanic, bowel sounds are diminished, I did a KUB on the patient which showed evidence of an ileus. I talked briefly with urology today, urology wanted to have general surgery see the patient and I was not an objection to this. I have given the patient a suppository today as well as a fleets enema and encouraged the patient to get up and walk around as much as possible. Objective Data Objective Data Vital Signs: Vital Signs Temp Pulse Resp BP Pulse Ox 98.0 F 71 14 144/73 H 94 10/01/21 16:03 10/01/21 16:03 10/01/21 16:03 10/01/21 16:03 10/01/21 16:03 Oxygen Delivery Method Room Air Weight: 82.1 kg Body Mass Index (BMI) 25.5 Intake & Output: Intake and Output for Last 24 Hours 09/29/21 09/30/21 10/01/21 23:59 23:59 23:59 Intake Total 2541.25 / 3441.25 2722.5 / 2962.5 870 / 870 Output Total 2100 / 4150 3600 / 4650 2700 / 2700 Balance 441.25 / -708.75 -877.5 / -1687.5 -1830 / -1830 Lab / Micro Data Result Diagrams: 10/01/21 05:55 10/01/21 05:55 Labs: Laboratory Results - last 24 hr 10/01/21 05:55: WBC 7.8, RBC 2.85 L, Hgb 9.0 L, Hct 26.6 L, MCV 93.3, MCH 31.6, MCHC 33.8, RDW Std Deviation 55.5 H, RDW Coeff of Nuvia 16.0 H, Plt Count 267, MPV 10.0, Immature Gran % (Auto) 1.200 H, Neut % (Auto) 72.6 H, Lymph % (Auto) 12.3 L, [place] % (Auto) 9.9, Eos % (Auto) 3.6, Baso % (Auto) 0.4, Absolute Neuts (auto) 5.7, Absolute Lymphs (auto) 0.96, Nucleated RBC % 0, Anisocytosis 1+ 10/01/21 05:55: Sodium 133 L, Potassium 3.6, Chloride 104, Carbon Dioxide 24.0, Anion Gap 5, BUN 12, Creatinine 0.80, Estim Creat Clear Calc 63.50, Est GFR (MDRD) Af Amer 90, Est GFR (MDRD) Non-Af 75, BUN/Creatinine Ratio 15.0, Glucose 95, Calcium 7.9 L, Total Bilirubin 0.80, AST 60 H, ALT 44, Alkaline Phosphatase 80, Total Protein 5.8 L, Albumin 2.4 L, Globulin 3.4, Albumin/Globulin Ratio 0.7 L Micro: Microbiology 09/29/21 15:04 Urine Catheter - Bailey Urine Culture - Final Culture exhibits no growth. 10/01/21 09:35 Stool C. difficile DNA Amplification - Final 09/28/21 09:11 Blood Culture (Wb) - Left Hand Blood Culture - Preliminary No growth in 48 hours. 09/28/21 08:51 Blood Culture (Wb) - Anticubital Left Blood Culture - Preliminary No growth in 48 hours. Radiography Diagnostic Testing: Radiology Impression KUB X-Ray 10/01/21 11:50 IMPRESSION: Gas is seen throughout the small bowel loops and colon down to the rectum. Findings are suggestive of ileus. Electronically Signed: Ziggy Nelson MD at 12:27 EDT , Physical Exam Const alert, oriented x3, no apparent distress and healthy appearing General Appearance: cooperative, well kempt and well developed Orientation / Consciousness: awake, oriented to person, oriented to place and oriented to time HEENT normocephalic, head/scalp atraumatic and moist oral mucous membranes Head and Scalp: normocephalic Eyes PERRL, EOMs intact bilaterally and conjunctivae normal Neck nuchal rigidity, supple, no JVD, thyroid normal and no carotid bruits General: trachea midline Resp normal respiratory effort and clear to auscultation bilaterally Auscultation: Negative for rales, rhonchi or wheezes Cardio regular rate, regular rhythm, S1 normal heart sound, S2 normal heart sound, no murmurs, no rub and no gallops GI soft to palpation and non-tender GI Narrative: Abdomen is distended, bowel sounds are diminished in all 4 quadrants, abdomen is nontender to palpation, no rebound abdominal tenderness was noted Extremity no clubbing, cyanosis or edema Skin no rashes or lesions noted General Skin Exam: no breakdown Neuro oriented x3, CN's II-XII intact bilaterally, no focal motor deficits and no sensory deficits noted Sensorium / Orientation: awake and alert Speech: speech normal Psych affect normal Assessment & Plan Assessment/Plan (1) Severe sepsis: PLAN: 1. Acute sepsis secondary to acute cystitis related to indwelling Bailey catheter-organism unknown, patient's urine culture exhibits no growth at this time, patient will remain on antibiotics at this time #2 ileus-probably adynamic ileus-patient will be n.p.o. at this time, general surgery is seeing patient, I have encouraged the patient to ambulate frequently, she will be reevaluated tomorrow, I do not feel she needs an NG tube inserted at this time, patient is not complaining of any nausea and is having no vomiting. #3 acute kidney [id number] will be given IV fluids because she is n.p.o. at this time, patient's creatinine has normalized #4 hypokalemia-corrected at this time, continue to monitor as needed #5 acute anemia secondary to pelvic hematoma-patient does not need a blood transfusion at this time, labs will be monitored #6 pelvic hematoma-urology is participating in her care, there is no surgery indicated for this at this time #7 status post recent vaginal enterocele repair-complicated by pelvic hematoma Charges/Coding Visit Charges Inpatient E&M: 10028 Subs Hosp L2
[2021-10-01] MEDS: Menthol/Lanolin/Calamine/Znox 113 GM Tube 1 APPLIC TOPICAL (22:57)
[2021-10-02] VITALS (8 sets, daily range): BP systolic 130–153; BP diastolic 76–81; PULSE 70–78; RESP 18–20; TEMP 36.3–37; O2SAT 93–96
[2021-10-02] MEDS: 0.9% Normal Saline 1,000 ML 100 ML IV ×2 (04:04→14:14)
[2021-10-02] MEDS: Menthol/Lanolin/Calamine/Znox 113 GM Tube 1 APPLIC TOPICAL ×2 (04:54→22:56)
--- NOTE | 2021-10-02 05:00 | RAD_ITS ---
INDICATION: Ileus EXAMINATION/TECHNIQUE: X-RAY - XR Abdomen W/ Decub and/or Erect Views COMPARISON: Abdominal x-ray 10/01/2021. Images and report. FINDINGS: AP supine and upright views. 3 images. Diffuse bowel dilatation involving small bowel and colon. Appears increased compared to the study from the prior day. No free air. No abnormal mass or calcification is seen. Lung bases are clear. IMPRESSION: Diffuse bowel dilatation, increased compared to prior day. Pattern could be due to low colonic obstruction. Ileus less likely. CT may be helpful as clinically indicated. Electronically Signed: Abby Harrell MD at 5:01 EDT , RAD/Abd Inc Decub and/or Erect
--- NOTE | 2021-10-02 11:40 | PCM.PN.HOSP ---
Subjective Subjective Patient was seen and examined today, she still has abdominal distention, her abdomen is soft however, bowel sounds are diminished. I talked briefly with general surgery about her care, they do not recommend any more imaging studies at this time or any medications. I have encouraged the patient to get up and walk as much as possible. Objective Data Objective Data Vital Signs: Vital Signs Temp Pulse Resp BP Pulse Ox 97.5 F L 70 18 130/76 H 95 10/02/21 04:55 10/02/21 07:03 10/02/21 04:55 10/02/21 04:55 10/02/21 04:55 Oxygen Delivery Method Room Air Weight: 81.5 kg Body Mass Index (BMI) 25.5 Intake & Output: Intake and Output for Last 24 Hours 09/30/21 10/01/21 10/02/21 23:59 23:59 23:59 Intake Total 2722.5 / 2962.5 870 / 870 1020 / 1020 Output Total 3600 / 4650 2900 / 2900 Balance -877.5 / -1687.5 -2030 / -2030 1020 / 1020 Lab / Micro Data Result Diagrams: 10/01/21 05:55 10/01/21 05:55 Micro: Microbiology 09/29/21 15:04 Urine Catheter - Bailey Urine Culture - Final Culture exhibits no growth. 10/01/21 09:35 Stool C. difficile DNA Amplification - Final 09/28/21 09:11 Blood Culture (Wb) - Left Hand Blood Culture - Preliminary No growth in 48 hours. 09/28/21 08:51 Blood Culture (Wb) - Anticubital Left Blood Culture - Preliminary No growth in 48 hours. Radiography Diagnostic Testing: Radiology Impression KUB X-Ray 10/01/21 11:50 IMPRESSION: Gas is seen throughout the small bowel loops and colon down to the rectum. Findings are suggestive of ileus. Electronically Signed: Ziggy Nelson MD at 12:27 EDT , Abdomen X-Ray 10/02/21 05:00 Physical Exam Narrative alert, oriented x3, no apparent distress and healthy appearing General Appearance: cooperative, well kempt and well developed Orientation / Consciousness: awake, oriented to person, oriented to place and oriented to time HEENT normocephalic, head/scalp atraumatic and moist oral mucous membranes Head and Scalp: normocephalic Eyes PERRL, EOMs intact bilaterally and conjunctivae normal Neck nuchal rigidity, supple, no JVD, thyroid normal and no carotid bruits General: trachea midline Resp normal respiratory effort and clear to auscultation bilaterally Auscultation: Negative for rales, rhonchi or wheezes Cardio regular rate, regular rhythm, S1 normal heart sound, S2 normal heart sound, no murmurs, no rub and no gallops GI soft to palpation and non-tender GI Narrative: Abdomen is distended, bowel sounds are diminished in all 4 quadrants, abdomen is nontender to palpation, no rebound abdominal tenderness was noted Extremity no clubbing, cyanosis or edema Skin no rashes or lesions noted General Skin Exam: no breakdown Neuro oriented x3, CN's II-XII intact bilaterally, no focal motor deficits and no sensory deficits noted Sensorium / Orientation: awake and alert Speech: speech normal Psych affect normal Assessment & Plan Assessment/Plan (1) Severe sepsis: PLAN: 1. Acute sepsis secondary to acute cystitis related to indwelling Bailey catheter-organism unknown, patient's urine culture exhibits no growth at this time, patient will remain on antibiotics at this time #2 ileus-probably adynamic ileus-patient will be n.p.o. at this time, general surgery is seeing patient, I have encouraged the patient to ambulate frequently #3 acute kidney [id number] will be given IV fluids because she is n.p.o. at this time, patient's creatinine has normalized #4 hypokalemia-corrected at this time, continue to monitor as needed #5 acute anemia secondary to pelvic hematoma-patient does not need a blood transfusion at this time, labs will be monitored #6 pelvic hematoma-urology is participating in her care, there is no surgery indicated for this at this time #7 status post recent vaginal enterocele repair-complicated by pelvic hematoma Charges/Coding Visit Charges Inpatient E&M: 02090 Subs Hosp L2
--- NOTE | 2021-10-02 17:51 | PCM.PN.GU ---
Subjective Subjective Nausea is better. Passed gas 3 times today. Is ambulating, chewing gum. Feeling little better over all. No new issues. Objective Data Objective Data Vital Signs: Vital Signs Temp Pulse Resp BP Pulse Ox 97.7 F L 73 18 153/76 H 95 10/02/21 10:55 10/02/21 15:02 10/02/21 10:55 10/02/21 10:55 10/02/21 10:55 Oxygen Delivery Method Room Air Weight: 81.5 kg Body Mass Index (BMI) 25.5 Intake & Output: Intake and Output for Last 24 Hours 09/30/21 10/01/21 10/02/21 23:59 23:59 23:59 Intake Total 2722.5 / 2962.5 870 / 870 2019 / 2019 Output Total 3600 / 4650 2900 / 2900 550 / 550 Balance -877.5 / -1687.5 -2030 / 1470 / 1470 Lab / Micro Data Result Diagrams: 10/01/21 05:55 10/01/21 05:55 Micro: Microbiology 09/29/21 15:04 Urine Catheter - Escobar Urine Culture - Final Culture exhibits no growth. 10/01/21 09:35 Stool C. difficile DNA Amplification - Final 09/28/21 09:11 Blood Culture (Wb) - Left Hand Blood Culture - Preliminary No growth in 48 hours. 09/28/21 08:51 Blood Culture (Wb) - Anticubital Left Blood Culture - Preliminary No growth in 48 hours. Radiography Diagnostic Testing: Radiology Impression Abdomen X-Ray 10/02/21 05:00 Physical Exam Const alert, oriented x3 and no apparent distress Resp normal respiratory effort, normal air movement, no retractions and no use of accessory muscles GI soft to palpation Inspection: abdominal distention Narrative: escobar draining clear yellow urine Extremity normal to inspection, no calf tenderness and no pedal edema Skin no rashes or lesions noted, no wounds, skin turgor normal, no jaundice, no petechiae and no mottling Neuro oriented x3, CN's II-XII intact bilaterally and moves all extremities Psych mental status grossly normal, thought process normal, cooperative, affect normal and speech normal Assessment & Plan Assessment/Plan (1) Ileus due to infection: (2) Severe sepsis: (3) Acute UTI: (4) Hydronephrosis: QUALIFIERS: Hydronephrosis type: other Qualified Code(s): N13.39 - Other hydronephrosis (5) Pelvic hematoma in female: PLAN: continue supportive care appreciate surgical input
--- NOTE | 2021-10-02 18:33 | NURSING ---
Reviewed charting with Neftaly Sosa RN
[2021-10-02] MEDS: Cefazolin 1 GM/50 ML BAG IV (22:56)
[2021-10-03] MEDS: 0.9% Normal Saline 1,000 ML 100 ML IV ×2 (01:01→10:46)
[2021-10-03 03:00] VITALS: PULSE 71
[2021-10-03 04:55] VITALS: BP 132/75; PULSE 71; RESP 18; TEMP 36.9; O2SAT 96
[2021-10-03] MEDS: Cefazolin 1 GM/50 ML BAG IV ×2 (06:19→14:46)
[2021-10-03] MEDS: Menthol/Lanolin/Calamine/Znox 113 GM Tube 1 APPLIC TOPICAL (06:20)
--- NOTE | 2021-10-03 06:46 | PCM.PN.SRG ---
Subjective Subjective The patient is passing significant flatus and she had several soft bowel movements. Her abdomen is less distended although it is still mildly distended. She had no nausea or vomiting overnight. Objective Data Objective Data Vital Signs: Vital Signs Temp Pulse Resp BP Pulse Ox 98.4 F 71 18 132/75 H 96 10/03/21 04:55 10/03/21 04:55 10/03/21 04:55 10/03/21 04:55 10/03/21 04:55 Oxygen Delivery Method Room Air Weight: 176 lb 2.389 oz Body Mass Index (BMI) 25.5 Intake & Output: Intake and Output for Last 24 Hours 10/01/21 10/02/21 10/03/21 23:59 23:59 23:59 Intake Total 870 / 870 2070 / 2070 1531.67 / 1531.67 Output Total 2900 / 2900 800 / 1125 325 / 325 Balance -2029 / -2029 1270 / 945 1206.67 / 1206.67 Lab / Micro Data Result Diagrams: 10/01/21 05:55 10/01/21 05:55 Micro: Microbiology 09/29/21 15:04 Urine Catheter - Bailey Urine Culture - Final Culture exhibits no growth. 10/01/21 09:35 Stool C. difficile DNA Amplification - Final 09/28/21 09:11 Blood Culture (Wb) - Left Hand Blood Culture - Preliminary No growth in 48 hours. 09/28/21 08:51 Blood Culture (Wb) - Anticubital Left Blood Culture - Preliminary No growth in 48 hours. Physical Exam Const oriented x3 and no apparent distress Resp normal respiratory effort GI soft to palpation and non-tender Inspection: abdominal distention Assessment & Plan Assessment/Plan (1) Ileus due to infection: PLAN: The patient reports bowel function since yesterday. She is having flatus and bowel movements. I will start a full liquid diet and she may advance as tolerated if she does well. I continue to encourage ambulation and gum chewing. I do recommend that the patient be started on stool softeners despite the diarrhea as I believe the liquid stools moving through an solid stool may have a difficult time. Nehemiah Sanchez MD Pager: [facility] [address] [place] [address], [address] [place] [phone] Office:
[2021-10-03 07:44] VITALS: PULSE 67
--- NOTE | 2021-10-03 08:08 | PCM.PN.GU ---
Subjective Subjective She has been passing flatus and stool overnight. Her abdomen is less distended. She has no nausea. She has been ambulating without difficulty and her catheter is not bothering her like her last ones. Objective Data Objective Data Vital Signs: Vital Signs Temp Pulse Resp BP Pulse Ox 98.4 F 67 18 132/75 H 96 10/03/21 04:55 10/03/21 07:44 10/03/21 04:55 10/03/21 04:55 10/03/21 04:55 Oxygen Delivery Method Room Air Weight: 79.9 kg Body Mass Index (BMI) 25.5 Intake & Output: Intake and Output for Last 24 Hours 10/01/21 10/02/21 10/03/21 23:59 23:59 23:59 Intake Total 870 / 870 2070 / 2070 1581.67 / 1581.67 Output Total 2900 / 2900 800 / 1125 325 / 325 Balance -2029 / -2029 1270 / 945 1256.67 / 1256.67 Lab / Micro Data Result Diagrams: 10/01/21 05:55 10/01/21 05:55 Micro: Microbiology 09/29/21 15:04 Urine Catheter - Bailey Urine Culture - Final Culture exhibits no growth. 10/01/21 09:35 Stool C. difficile DNA Amplification - Final 09/28/21 09:11 Blood Culture (Wb) - Left Hand Blood Culture - Preliminary No growth in 48 hours. 09/28/21 08:51 Blood Culture (Wb) - Anticubital Left Blood Culture - Preliminary No growth in 48 hours. Physical Exam GI soft to palpation Inspection: abdominal distention Narrative: Bailey balloon was deflated and the catheter was advanced without difficulty and the balloon was reinflated and the catheter was secured to her thigh. It is draining clear yellow urine. Extremity no calf tenderness Skin no rashes or lesions noted, no wounds, skin turgor normal, no jaundice, no petechiae and no mottling Neuro oriented x3 and CN's II-XII intact bilaterally Assessment & Plan Assessment/Plan (1) Ileus due to infection: (2) Severe sepsis: (3) Acute UTI: (4) Hydronephrosis: QUALIFIERS: Hydronephrosis type: other Qualified Code(s): N13.39 - Other hydronephrosis (5) Pelvic hematoma in female: PLAN: Diet per general surgery today. I appreciate their management. Continue supportive care. Pyelonephritis is resolving and she had no fevers overnight. Continue Bailey catheter. Will be discharged home with Bailey catheter.
[2021-10-03] MEDS: Docusate Sodium 100 MG Capsule PO (09:52)
[2021-10-03 10:41] VITALS: BP 123/68; PULSE 74; RESP 18; TEMP 36.6; O2SAT 98
--- NOTE | 2021-10-03 11:27 | PCM.DC ---
Discharge Instructions Diet Discharge Diet: No restrictions Activity Discharge Activity: Return to Normal Activity Weight Bearing Status: Full weight bearing Follow Up Care Test Results: Test results from this visit will be discussed in further detail at your follow-up appointment, if applicable. Discharge Plan Admission Admit Date/Time: 09/28/21 12:39 Primary Reason for Your Visit: Sepsis secondary to acute cystitis Attending Provider: Conrad Greene Primary Care Provider: Siobhan Powell Consulting Providers: Myrna Ventura ; Nehemiah Sanchez Instructions Additional Instructions / Restrictions: Take a stool softener twice daily-Surfak or Colace-obtain over the counter Discharge Orders/Prescriptions Prescriptions: New cephalexin 500 mg capsule 500 mg PO TID Qty: 12 RF: 0 Continued digestive enzymes Capsule 1 cap PO DAILY RF: 0 garlic 1 MG capsule 1 mg PO DAILY RF: 0 omega-3 fatty acids-fish oil 1 EACH capsule 1 ea PO DAILY RF: 0 multivitamin with folic acid [Thera] 1 TABLET tablet 1 tab PO DAILY RF: 0 hawthorn 500 mg Capsule 500 mg PO DAILY RF: 0 Referrals / Follow Up: Myrna Ventura MD [STAFF PHYSICIAN] - See Referral Note (in 10 days) Siobhan Powell MD [Primary Care Provider] - See Referral Note (at next scheduled visit) Disposition Disposition (needs filled in before D/C Order can be placed): Home, Self Care
--- NOTE | 2021-10-03 12:24 | CASEMGMT ---
YSABEL MOE NOTE: Pt being discharged home. PT/OT evals/notes reviewed. Additional therapy recommended. YSABEL MOE to room to discuss discharge planning. Pt and , who is at bedside, made aware of therapies recommendations. Pt denies wanting HHC for therapy or OP therapy. Pt and made aware, if they decide pt would benefit from therapy at a later time, to discuss this w/pt's PCP. They voice understanding. Berta CALVO RN CM
--- NOTE | 2021-10-03 15:00 | DS.PCM_ITS ---
Providers Date of Admission: 09/28/21 Date of Discharge: 10/03/21 Primary Care Physician: Dr. Siobhan Powell MD Consultations 09/28/21 13:29 Consult: Urology Routine Consulting Provider: Myrna Ventura Reason for Consult: Hydronephrosis EMERGENT Consult: No Notified: Yes Date Notified: 09/28/21 Time Notified: 13:29 Method of Notification: Verbal 10/01/21 12:31 Consult: General Surgery Routine Consulting Provider: Nehemiah Sanchez Reason for Consult: post operative ileus EMERGENT Consult: No Notified: Yes Date Notified: 10/01/21 Time Notified: 12:31 Method of Notification: Verbal Reason For Visit: SEPSIS/UTI Diagnosis Discharge Diagnosis (1) Ileus due to infection: Status: Acute Code(s): K56.7 - Ileus, unspecified; B99.9 - Unspecified infectious disease (2) Severe sepsis: Status: Acute Code(s): A41.9 - Sepsis, unspecified organism; R65.20 - Severe sepsis without septic shock (3) Acute UTI: Status: Acute Code(s): N39.0 - Urinary tract infection, site not specified (4) Hydronephrosis: Status: Acute Code(s): N13.30 - Unspecified hydronephrosis Qualifiers: Hydronephrosis type: other Qualified Code(s): N13.39 - Other hydronephrosis (5) Pelvic hematoma in female: Status: Acute Code(s): N94.89 - Other specified conditions associated with female genital organs and menstrual cycle Plan: 1. Acute sepsis secondary to acute cystitis with E. coli related to Bailey catheter and urinary retention #2 adynamic ileus #3 acute kidney injury #4 hypokalemia #5 acute anemia secondary to pelvic hematoma-not requiring blood transfusion #6 pelvic hematoma-present on admission #7 status post recent vaginal enterocele repair complicated by pelvic hematoma Medications at Discharge Home Medications garlic 1 mg PO DAILY 09/30/13 multivitamin with folic acid [Thera] 1 tab PO DAILY 09/30/13 omega-3 fatty acids-fish oil 1 ea PO DAILY 09/30/13 digestive enzymes 1 cap PO DAILY 05/06/21 hawthorn 500 mg PO DAILY 09/03/21 cephalexin 500 mg PO TID #12 cap 10/03/21 Hospital Course Operations None Procedures None Summary of Care Provided Minutes Spent on Discharge: 31 Hospital Course: This 76-year-old white female was seen in the emergency room at [facility] with complaints of fever, chills, and malaise. Patient had a recent vaginal enterocele repair and developed a pelvic hematoma and had to be transferred emergently to [facility] recently. She followed up with urology as an outpatient on 09/16/2021, an attempt to remove her Bailey catheter was unsuccessful and a new Bailey catheter was placed. This new Bailey catheter was removed on 09/23/2021. Patient was seen on 09/27/2021 and diagnosed with an acute cystitis and started on antibiotics, her Bailey catheter was replaced. Overnight that night her fever was as high as 105 degrees and she came to the emergency room for evaluation. In the emergency room, her white blood cell count was noted to be elevated at 20.1, creatinine was 1.33, BUN was 15, lactic acid was 2, and total bilirubin is 1.7. UA showed 10-25 white blood cells but 0 bacteria, occult blood was 150. CT scan of the abdomen and pelvis showed a persistent large presacral pelvic hematoma displacing the rectum and the bladder. Patient was admitted to PCU, started on IV antibiotics and seen in consultation with urology recommended that the patient maintain her Bailey catheter. Patient's white blood cell count improved, her kidney functions improved, and her potassium normalized. Patient unfortunately developed an adynamic ileus, she was made n.p.o. and seen in consultation by general surgery who did not recommend any surgical intervention. Her ileus resolved spontaneous ly. On 10/03/2021, patient was seen and examined: On examination she appeared in good health and spirits, she does not appear to be in any distress. Vital signs as documented. Skin warm and dry and without overt rashes. Neck without JVD, thyroid appears normal, trachea is midline, neck is supple. Lungs clear, normal air movement was noted. Heart exam notable for regular rhythm, normal sounds and absence of murmurs, rubs or gallops. Abdomen unremarkable and without evidence of organomegaly, masses, or abdominal aortic enlargement, bowel sounds are present in all 4 quadrants, no abdominal tenderness was noted. Extremities nonedematous, no cyanosis was noted, no clubbing was noted. Neuro: Cranial nerves II through XII are grossly intact, no focal motor deficits were noted, sensation to light touch and pinprick is intact, motor exam 5/5 throughout. Psych: Patient is alert and oriented x3, she does not appear anxious or depressed, she does not appear agitated. Patient was felt to be stable for discharge home on 10/03/2021, she was to follow- up with urology in 10 days. Weight / BMI Weight Weight: 79.9 kg Body Mass Index (BMI) 25.5 ABG / Lab / Microbiology Data Result Diagrams: 10/01/21 05:55 10/01/21 05:55 Microbiology: Microbiology 09/28/21 08:51 Blood Culture (Wb) - Anticubital Left Blood Culture - Final No growth in 5 days. 09/28/21 09:11 Blood Culture (Wb) - Left Hand Blood Culture - Final No growth in 5 days. 09/29/21 15:04 Urine Catheter - Bailey Urine Culture - Final Culture exhibits no growth. 10/01/21 09:35 Stool C. difficile DNA Amplification - Final D/C Instructions Discharge Diet: No restrictions Weight Bearing Status: Full weight bearing Meaningful Use Info Meaningful Use Diagnoses (Choose all that apply): None applicable Discharge Plan Admission Admit Date/Time: 09/28/21 12:39 Primary Reason for Your Visit: Sepsis secondary to acute cystitis Attending Provider: Conrad Greene Primary Care Provider: Siobhan Powell Consulting Providers: Myrna Ventura ; Nehemiah Sanchez Instructions Additional Instructions / Restrictions: Take a stool softener twice daily-Surfak or Colace-obtain over the counter Discharge Orders/Prescriptions Prescriptions: New cephalexin 500 mg capsule 500 mg PO TID Qty: 12 RF: 0 Continued digestive enzymes Capsule 1 cap PO DAILY RF: 0 garlic 1 MG capsule 1 mg PO DAILY RF: 0 omega-3 fatty acids-fish oil 1 EACH capsule 1 ea PO DAILY RF: 0 multivitamin with folic acid [Thera] 1 TABLET tablet 1 tab PO DAILY RF: 0 hawthorn 500 mg Capsule 500 mg PO DAILY RF: 0 Referrals / Follow Up: Myrna Ventura MD [STAFF PHYSICIAN] - 10/16/21 9:30 am (in 10 days) Siobhan Powell MD [Primary Care Provider] - See Referral Note (at next scheduled visit) Disposition Disposition (needs filled in before D/C Order can be placed): Home, Self Care Charges/Coding Visit Charges Inpatient E&M: 16110 Disch Hosp
[2021-10-03 15:44] VITALS: BP 135/73; PULSE 72; RESP 20; TEMP 36.5; O2SAT 94
--- NOTE | 2021-10-03 15:58 | NURSING ---
Reviewed charting with Neftaly Sosa RN
== END 2021-10-03 16:04 | disposition home or self-care (01) | DRG 698 ==
LOC: ED 12:48 → PCU 12:55
PROVIDERS: Admitting Provider Internal Medicine; Emergency Provider Emergency Medicine; PCP Internal Medicine; Visit Provider Internal Medicine
DX: T83.511A Infection and inflammatory reaction due to indwelling urethral catheter, initial encounter (principal); A41.9 Sepsis, unspecified organism; R65.20 Severe sepsis without septic shock; N17.9 Acute kidney failure, unspecified; K56.0 Paralytic ileus; N13.39 Other hydronephrosis; N30.00 Acute cystitis without hematuria; E86.0 Dehydration; E87.6 Hypokalemia; B96.20 Unspecified Escherichia coli [E. coli] as the cause of diseases classified elsewhere; D64.9 Anemia, unspecified; Z86.718 Personal history of other venous thrombosis and embolism; Z85.828 Personal history of other malignant neoplasm of skin; Z78.0 Asymptomatic menopausal state; Z87.01 Personal history of pneumonia (recurrent); Y84.8 Other medical procedures as the cause of abnormal reaction of the patient, or of later complication, without mention of misadventure at the time of the procedure; N94.89 Other specified conditions associated with female genital organs and menstrual cycle
CPT/HCPCS: 36415; 74018; 74019; 74177; 76770; 80053; 81001; 82962; 83605; 85025; 87040; 87086; 87493; 97110; 97162; 97165; 97530; 97535; 99251; 99284; J7030; J7050; Q9967; A4216; G0463; J0696

== ENCOUNTER → 2024-03-08 | Outpatient (CLI) | payer OTHER, SELFPAY | END | disposition home or self-care (01) | LOC: LABSPEC 16:54 | PROVIDERS: PCP Internal Medicine; Referring Provider Physician Assistant; Visit Provider Physician Assistant | DX: R09.89 Other specified symptoms and signs involving the circulatory and respiratory systems (principal); R05.9 Cough, unspecified | CPT/HCPCS: 87070; 87205 ==